=== PATIENT | male | born 1955 | race Caucasian/White ===

== ENCOUNTER → 2018-05-06 | Outpatient (CLI) | payer BC ==
--- NOTE | 2018-05-06 16:30 | US ---
EXAMINATION TYPE: US liver DATE OF EXAM: 05/06/2018 COMPARISON: NONE CLINICAL HISTORY: K76.0 Fatty (change of) liver. Hx of fatty liver. No surgeries. No pain. NPO. EXAM MEASUREMENTS: Liver Length: 15.7 cm Gallbladder Wall: 0.2 cm CBD: 0.4 cm CHD: 0.4 cm Right Kidney: 10.8 x 6.0 x 5.7 cm Pancreas: Tail obscured by overlying bowel gas. Echogenic. Main pancreatic duct - 0.22 cm . Normal less than 0.2 cm. Liver: Increased attenuation, decreased visualization of vessels suggestive of fatty infiltrate Gallbladder: wnl Evidence for sonographic Gaspar's sign: neg CBD: wnl CHD: wnl Right Kidney: wnl IMPRESSION: 1. Minimal prominence of the pancreatic duct. Consider ERCP for additional evaluation. 2. Moderate fatty infiltration liver. 3. Ultrasound abdomen otherwise unremarkable
== END ==
LOC: RADUSWWP 07:32
PROVIDERS: ATTEND Family Medicine
DX: K76.0 Fatty (change of) liver, not elsewhere classified (principal)
CPT/HCPCS: 76705

== ENCOUNTER → 2018-07-06 | Outpatient (CLI) | payer BC ==
--- NOTE | 2018-07-06 10:15 | US ---
EXAMINATION TYPE: US liver DATE OF EXAM: 07/06/2018 COMPARISON: 04/28/2018 CLINICAL HISTORY: K76.0 fatty liver. abn labs, no symptoms EXAM MEASUREMENTS: Liver Length: 16.3 cm Gallbladder Wall: 0.2 cm CBD: 0.5 cm Right Kidney: 11.7 x 4.6 x 5.4 cm Pancreas: wnl Liver: difficult to penetrate and heterogneneous Gallbladder: wnl Evidence for sonographic Gaspar's sign: no CBD: wnl Right Kidney: wnl IMPRESSION: 1. Diffuse hepatocellular disease versus fatty liver. Correlate clinically.
== END ==
LOC: RADUSWWP 07:33
PROVIDERS: ATTEND Family Medicine
DX: K76.0 Fatty (change of) liver, not elsewhere classified (principal)
CPT/HCPCS: 76705

== ENCOUNTER 2018-12-23 08:23 | Day surgery (SDC) | payer BC ==
[2018-12-21 08:14] VITALS: BMI 28.1
[~2018-12-23 08:23] MED LIST: LACTATED RINGERS 1,000 ML IV SCH; LIDOCAINE 1% 20 ML VIAL (10MG/ML) FOR IV START INTRADERMA PRN
[2018-12-23 08:39] VITALS: RESP 16; TEMP 97
[2018-12-23] MEDS ORDERED: PROPOFOL 10 MG/ML 20 ML VIAL IV ONE (09:47)
--- NOTE | 2018-12-23 09:50 | P.GSHP ---
History of Present Illness H&P Date: 12/23/18 Chief Complaint: Colon polyp 63-year-old male known to our service. Patient underwent colonoscopy last April. He was found to have a elevation of his ileocecal valve. At that location biopsy showed serrated adenoma. Doing well at this time. No bowel related complaints. Here today for reevaluation with polyp removal. Past Medical History Past Medical History: Hypertension History of Any Multi-Drug Resistant Organisms: None Reported Past Surgical History: Tonsillectomy Additional Past Surgical History / Comment(s): COLONOSCOPY Past Anesthesia/Blood Transfusion Reactions: No Reported Reaction Smoking Status: Former smoker - Past Family History Mother Family Medical History: Cancer Medications and Allergies Home Medications Medication Instructions Recorded Confirmed Type amLODIPine BESYLATE/BENAZEPRIL 1 each PO DAILY 12/21/18 12/23/18 History [amLODIPine BESYLATE/BENAZEPRIL 5-20 MG] Allergies Allergy/AdvReac Type Severity Reaction Status Date / Time No Known Allergies Allergy Verified 12/23/18 08:38 Surgical - Exam Vital Signs Temp Pulse Resp BP Pulse Ox 97 F L 68 16 117/64 93 L 12/23/18 08:38 12/23/18 08:38 12/23/18 08:38 12/23/18 08:38 12/23/18 08:38 Physical exam: General: Well-developed, well-nourished HEENT: Normocephalic, sclerae nonicteric Abdomen: Nontender, nondistended Extremities: No edema Neuro: Alert and oriented Assessment and Plan (1) Colon polyp Narrative/Plan: Will proceed with colonoscopy at this time Current Visit: Yes Status: Acute Code(s): K63.5 - POLYP OF COLON SNOMED Code(s): 04745727
--- NOTE | 2018-12-23 10:22 | P.PCN ---
Date of Procedure: 12/23/18 Procedure(s) Performed: PREOPERATIVE DIAGNOSIS: Colon polyp POSTOPERATIVE DIAGNOSIS: Diverticulosis, poor prep, no ileocecal valve polyp seen PROCEDURE: Colonoscopy ANESTHESIA: MAC SURGEON: Onel Christianson M.D. SPECIMENS: None ENDOSCOPIC PROCEDURE: The patient was placed on the endoscopy table in the left decubitus position. The Olympus colonoscope was inserted into the anus and passed under direct visualization to the base of the cecum. The appendiceal orifice was visualized. From that point the scope was slowly withdrawn inspecting all surfaces carefully. The patient's ileocecal valve had a somewhat strictured appearance. Luminal diameter there appeared less than 1 cm a portion of the ileum was protruding through the valve. There appeared to be slight scarring at the valve itself. There was no visible polypoid tissue however despite the previous biopsy. I was able to get a good view beneath the valve and at the base of the cecum with no visible polypoid tissue. The ascending colon transverse descending sigmoid and rectum appeared normal. The patient's prep was somewhat suboptimal. The patient had extensive diverticulosis. Digital rectal examination was normal. The patient was taken to the recovery room in stable condition per anesthesia guidelines. RECOMMENDATIONS: No visible polypoid tissue at the ileocecal valve at this time. Narrowing at the valve itself does not appear neoplastic. Recommend follow-up colonoscopy 2 years. Patient will follow up with me sooner if he develops any abdominal complaints.
[2018-12-23 10:26] VITALS: BP 107/72; PULSE 68
== END 2018-12-23 10:58 | disposition home or self-care (01) ==
LOC: ORWHC2ENDO 08:23
PROVIDERS: ATTEND Surgery
DX: K57.30 Diverticulosis of large intestine without perforation or abscess without bleeding (principal); Z86.010 Personal history of colon polyps; I10 Essential (primary) hypertension; Z79.899 Other long term (current) drug therapy; Z87.891 Personal history of nicotine dependence
CPT/HCPCS: 45378; J2704

== ENCOUNTER → 2019-02-03 | Day surgery (SDC) | payer BC ==
[~2019-02-03] MED LIST changes: +GLUCAGON 1 MG/ML VIAL IM STA; -LACTATED RINGERS 1,000 ML IV SCH; -LIDOCAINE 1% 20 ML VIAL (10MG/ML) FOR IV START INTRADERMA PRN
[2019-02-03 08:43] VITALS: BP 127/91; PULSE 75; RESP 20; TEMP 97.9
--- NOTE | 2019-02-05 12:59 | MR ---
EXAMINATION TYPE: MR Enterography DATE OF EXAM: 02/03/2019 COMPARISON: Hepatic ultrasound dated 06/28/2018 HISTORY: intestinal stricture CONTRAST: Standard multiplanar, multisequence imaging of the abdomen is performed without and with IV contrast, patient is injected with 1350 mL intravenous Gadavist gadolinium contrast. Oral Volumen and Water wa s given as per enterography protocol. FINDINGS: No intrahepatic biliary ductal dilatation is seen in the visualized portions of the liver. There is s usceptibility artifact generated from the left hip obscuring visualization of the pelvis. There is no abnormal enhancement in the visualized portions of the liver, spleen, pancreas, kidneys, nor adrenal glands. Abdominal aorta is of normal course and caliber. There is mild narrowing of the t erminal ileum and very mild enhancement seen on series 701 first pass postcontrast T1 fat sat image 2 36 in 239. The narrowing is seen on image 227 through 215. Caliber prior to this of the distal ileum measures 1.7 cm and the narrowing measures 0.7 cm. This measures a distance of the proximal there is no proximal dilatation of the distal ileum. No surrounding fluid collection is seen to suggest absces s. No bowel wall thickening is seen of the loops of bowel. Scattered colonic diverticula are present. Bowel wall thickening of the sigmoid colon may relate to chronic diverticulosis with no current infl ammatory fat stranding changes seen. Axial T2 nonfat sat series 301 image 22 there is terminal ileal wall thickening measuring up to 8 mm with no surrounding inflammatory change. No distinct submucosal deposition of fat is seen within the colon or small bowel to indicate chronic colitis. There is no te thering of loops of bowel nor vasa recta engorgement. No greater than 1 cm short axis lymph node is s een in the abdomen or pelvis. No stricture is identified the rectum is not included and therefore per irectal fistula or sinus tract cannot be evaluated. IMPRESSION: Low-grade short segment (approximately 2 cm) stricture of the terminal ileum with very mild enhanceme nt suggesting mild acute terminal ileitis however no surrounding inflammatory fat stranding is seen. No bowel dilatation or obstruction. 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
== END ==
LOC: RADMRIMAIN 08:18
PROVIDERS: ATTEND Surgery
DX: K56.699 Other intestinal obstruction unspecified as to partial versus complete obstruction (principal)
CPT/HCPCS: 96372; 72197; 74183; J1610; A9585

== ENCOUNTER 2021-12-27 11:07 | Emergency (ER) | payer BC ==
--- NOTE | 2021-12-27 12:01 | XR ---
EXAMINATION TYPE: XR shoulder complete RT DATE OF EXAM: 12/27/2021 CLINICAL HISTORY: Lifting injury with pain TECHNIQUE: Three views of the right shoulder are obtained. COMPARISON: None. FINDINGS: Metallic hardware from reverse right shoulder arthroplasty is present. There is anterior po sitioning of the proximal humeral component relative to the osseous glenoid component. No acute fract ure is seen. Moderate narrowing and spurring at the acromioclavicular joint is incidentally appreciat ed. [place]ik osseous structures are demineralized. The visualized ribs are intact . IMPRESSION: There is anterior prosthetic dislocation without fracture.
--- NOTE | 2021-12-27 12:45 | ED ---
General Adult HPI - General Chief complaint: Extremity Injury, Upper Stated complaint: Shoulder Pain Time Seen by Provider: 12/27/21 11:21 Source: patient Mode of arrival: ambulatory Limitations: no limitations - History of Present Illness Initial comments: Patient is a 66-year-old male presenting with chief complaint of right shoulder pain. Patient states that he was picking up a dog today when he felt sudden onset pain and noticed a large bulge at the front of his shoulder. Patient recently had a reverse right shoulder arthroplasty performed on 11/24/[address] Berrios in [place]. Patient states that he has dislocated his shoulder in the past and states that this feels similar. He has full sensation and range of motion of the hand and fingers. Denies any pain in the hand or discoloration. Denies any numbness, tingling, weakness. - Related Data Home Medications Medication Instructions Recorded Confirmed amLODIPine BESYLATE/BENAZEPRIL 1 each PO DAILY 12/21/18 02/03/19 [amLODIPine BESYLATE/BENAZEPRIL 5-20 MG] Allergies Allergy/AdvReac Type Severity Reaction Status Date / Time No Known Allergies Allergy Verified 12/27/21 11:19 Review of Systems ROS Statement: Those systems with pertinent positive or pertinent negative responses have been documented in the HPI. ROS Other: All systems not noted in ROS Statement are negative. Past Medical History Past Medical History: Hypertension History of Any Multi-Drug Resistant Organisms: None Reported Past Surgical History: Orthopedic Surgery, Tonsillectomy Additional Past Surgical History / Comment(s): right shoulder, left hip replacement Past Anesthesia/Blood Transfusion Reactions: No Reported Reaction Past Psychological History: No Psychological Hx Reported Smoking Status: Never smoker Past Alcohol Use History: Occasional Past Drug Use History: None Reported - Past Family History Mother Family Medical History: Cancer General Exam Limitations: no limitations General appearance: alert, in no apparent distress Head exam: Present: atraumatic, normocephalic, normal inspection Eye exam: Present: normal appearance, EOMI. Absent: scleral icterus Neck exam: Present: normal inspection Respiratory exam: Present: normal lung sounds bilaterally. Absent: respiratory distress, wheezes, rales, rhonchi, stridor Cardiovascular Exam: Present: regular rate, normal rhythm, normal heart sounds. Absent: systolic murmur, diastolic murmur, rubs, gallop, clicks Extremities exam: Absent: full ROM, tenderness Right Shoulder Exam: Present: deformity. Absent: full ROM Neuro motor exam: Present: wrist extension intact, thumb opposition intact, fingers 2-5 abduction intact Vascular: Present: radial pulse. Absent: vascular compromise Neurological exam: Present: alert, oriented X3, CN II-XII intact Psychiatric exam: Present: normal affect, normal mood Skin exam: Present: warm, dry, intact, normal color. Absent: rash Course Vital Signs 12/27/21 12/27/21 11:14 14:44 Temperature 97.8 F 97.3 F L Pulse Rate 64 80 Respiratory 16 18 Rate Blood Pressure 131/86 139/93 O2 Sat by Pulse 96 95 Oximetry Medical Decision Making - Medical Decision Making Patient is a 66-year-old male presenting with chief complaint of right shoulder pain. Patient had reverse total shoulder arthroplasty on 11/24/[address] Berrios in [place]. Patient states that he was picking up his dog today when he felt the shoulder pop out of place. He is describing a dull pain, no numbness or tingling or weakness. On examination radial pulses palpated, full sensation is intact, full wrist range of motion. Mild tenderness on palpation of the shoulder. There is an obvious deformity. X-ray confirms anterior dislocation. I spoke with the on-call orthopedist Dr. Villa, she stated that these dislocations are often difficult to reduce without the use of the OR, it would be of the patient's best interest to be seen by his original surgeon. I contacted Dr. Berrios's after-hours answering service, the PA with his office and spoke with me and stated that he could either be seen in the office on Wednesday or he could report to an ER which Dr. Berrios was able to surface such as [facility]. I discussed these options with Dr. Villa, she stated that we could offer to reduce the shoulder here and explained that this may not be successful in may require the use of the OR, which would require transfer to the hospital which Dr. Berrios all has privileges at, or we can transfer to [facility] where he could be seen and evaluated by Dr. Berrios's group. When provided options the patient opted to transfer to [facility]. I spoke with a provider in the ER, they accepted transfer. Patient was transferred by private vehicle. I discussed this case with my attending Dr. Paredes. Disposition Clinical Impression: Dislocation of shoulder region Disposition: OTHER INSTITUTION NOT DEFINED Condition: Stable Referrals: Nathan Marie MD [Primary Care Provider] - 1-2 days Time of Disposition: 14:21 - Out of Hospital Transfer - Req. Specs Out of Hospital Transfer - Requested Specifics: Other Emergency Center
[2021-12-27 14:46] VITALS: BP 139/93; PULSE 80; RESP 18; TEMP 97.3
== END 2021-12-27 14:52 | disposition other institution (70) ==
LOC: EC 11:07
DX: T84.028A Dislocation of other internal joint prosthesis, initial encounter (principal); I10 Essential (primary) hypertension; Z79.899 Other long term (current) drug therapy; Z96.611 Presence of right artificial shoulder joint; X58.XXXA Exposure to other specified factors, initial encounter
CPT/HCPCS: 99284

== ENCOUNTER 2022-07-28 07:15 | Day surgery (SDC) | payer BC ==
[2022-07-23 12:22] VITALS: BMI 28.8
[~2022-07-28 07:15] MED LIST changes: -GLUCAGON 1 MG/ML VIAL IM STA; +LACTATED RINGERS 1,000 ML IV SCH; +LIDOCAINE 1% (10MG/ML) FOR IV START INTRADERMA PRN; +ONDANSETRON 4 MG/2 ML VIAL IVP PRN
[2022-07-28 08:00] VITALS: RESP 16; TEMP 97.6
[2022-07-28] MEDS ORDERED: PROPOFOL 10 MG/ML 20 ML VIAL IV ONE (08:36)
--- NOTE | 2022-07-28 08:58 | P.PCN ---
Date of Procedure: 07/28/22 Procedure(s) Performed: BRIEF HISTORY: Patient is a 66-year-old pleasant white male male scheduled for an elective colonoscopy as a part of evaluation of chronic diarrhea for the last several years duration. He also has prior history of colon polyps. Last colonoscopy was 5 years ago. PROCEDURE PERFORMED: Colonoscopy with biopsy and snare polypectomy. PREOPERATIVE DIAGNOSIS: Chronic diarrhea. Historyofcolonpolyps. IV sedation per Anesthesia. PROCEDURE: After informed consent was obtained, the patient, was brought into the endoscopy unit. IV sedation was administered by Anesthesia under continuous monitoring. Digital rectal examination was normal. Initially the Olympus CF-160 flexible video colonoscope was then inserted in the rectum, gradually advanced into the cecum without any difficulty. Careful examination was performed as the scope was gradually being withdrawn. Ileocecal valve and the appendiceal orifice were visualized and appeared normal. Prep was fair.. Terminal ileum was intubated and 20 cm visualized and appeared normal. Mucosa of the cecum, ascending colon, appeared normal. The transverse colon there was a 3 mm polyp removed by cold biopsy. Rest of the transverse colon, descending colon, appeared normal. The sigmoid: There was a 1.5 cm pegylated polyp removed by snare polypectomy. Scattered diffuse diverticulosis noted throughout the entire colon. Mucosa of the sigmoid colon, and rectum appeared normal. Random biopsies were done from ascending and descending colon to rule out microscopic/collagenous colitis. Retroflexion was performed in the rectum and no lesions were seen. The patient tolerated the procedure well. IMPRESSION: 3 mm transverse colon polyp status post cold biopsy 1.5 cm pedunculated sigmoid: Polyp status post polypectomy Diffuse diverticulosis RECOMMENDATIONS: Findings of this examination were discussed with the patient as well as his family. He was advised to follow with the biopsy results. If the biopsy results adenoma he can have a repeat colonoscopy in 3 years..
[2022-07-28 09:31] VITALS: BP 103/62; PULSE 75
== END 2022-07-28 09:38 | disposition home or self-care (01) ==
LOC: ORWHC2ENDO 07:15
PROVIDERS: ATTEND Internal Medicine Gastroenterology
DX: D12.3 Benign neoplasm of transverse colon (principal); D12.5 Benign neoplasm of sigmoid colon; K57.30 Diverticulosis of large intestine without perforation or abscess without bleeding; I10 Essential (primary) hypertension; M10.9 Gout, unspecified; Z86.010 Personal history of colon polyps; Z87.891 Personal history of nicotine dependence; Z98.890 Other specified postprocedural states; Z79.899 Other long term (current) drug therapy; Z90.89 Acquired absence of other organs
CPT/HCPCS: 88305; 45380; 45385; J2704

== ENCOUNTER → 2023-11-25 | Outpatient (CLI) | payer MEDICARE ==
--- NOTE | 2023-11-25 19:23 | US ---
EXAMINATION TYPE: US arterial LE single level DATE OF EXAM: 11/25/2023 3:01 PM CLINICAL INDICATION: Male, 68 years old with history of I73.9 PERIPHERAL VASCULAR DISEASE, UNSPECIFIE D; claudication in thighs History of: Smoker: previous Hypertension: Yes Diabetic: No Hyperlipidemia: No TIA/CVA: No Previous Vascular Surgery: No CAD: No UT: No Vascular Ulcers: No Claudication: Bilateral Gangrene: No Doppler Waveforms: Right: Multiphasic Left: Multiphasic Right Brachial Pressure: 111 Left Brachial Pressure: 113 Ankle-Brachial Indices: Right: 1.15 Left: 1.19 (Vessel hardening > 1.4; Normal 0.9 - 1.4, Moderate 0.7 - 0.9, Severe 0.5-0.7) normal IMPRESSION: Based on triphasic waveforms in the pedal vessels and ABIs of 111 and 113 for the right a nd left respectively , there is no significant peripheral vascular disease.
== END | disposition home or self-care (01) ==
LOC: RADUSWWP 14:01
PROVIDERS: ATTEND Family Medicine
DX: I73.9 Peripheral vascular disease, unspecified (principal)
CPT/HCPCS: 93922

== ENCOUNTER 2023-12-29 00:14 | Emergency (ER) | payer MEDICARE ==
[2023-12-29 01:14] VITALS: BP 152/74; PULSE 41; RESP 16; TEMP 98.3
[2023-12-29] MEDS: BACITRACIN OINT 1 EACH PACKET TOPICAL ONE (01:38)
--- NOTE | 2023-12-29 01:58 | ED ---
General Adult HPI - General Chief complaint: Skin/Abscess/Foreign Body Stated complaint: lft thumb pain Time Seen by Provider: 12/29/23 00:35 Source: patient Mode of arrival: ambulatory Limitations: no limitations - History of Present Illness Initial comments: 68-year-old male presented to the ED with complaints of left thumb pain. Patient was fishing earlier today and got a fishhook stuck into his left thumb when he was trying to remove it from a walleye earlier. Tetanus status unknown. No other injuries at this time. No other complaints. - Related Data Home Medications Medication Instructions Recorded Confirmed amLODIPine BESYLATE/BENAZEPRIL 1 each PO DAILY 12/21/18 07/28/22 [amLODIPine BESYLATE/BENAZEPRIL 5-20 MG] Ascorbic Acid [Vitamin C] 500 mg PO DAILY 07/23/22 07/28/22 Cholecalciferol [Vitamin D3 (25 50 mcg PO DAILY 07/23/22 07/28/22 Mcg = 1000 Iu)] Cinnamon Bark [Cinnamon] 1,500 mg PO DAILY 07/23/22 07/28/22 allopurinoL [Zyloprim] 300 mg PO DAILY 07/23/22 07/28/22 Previous Rx's Medication Instructions Recorded Cephalexin [Keflex] 500 mg PO Q6HR 5 Days #20 cap 12/29/23 Allergies Allergy/AdvReac Type Severity Reaction Status Date / Time No Known Allergies Allergy Verified 12/29/23 00:26 Review of Systems ROS Statement: Those systems with pertinent positive or pertinent negative responses have been documented in the HPI. ROS Other: All systems not noted in ROS Statement are negative. Past Medical History Past Medical History: Hypertension Additional Past Medical History / Comment(s): GOUT History of Any Multi-Drug Resistant Organisms: None Reported Past Surgical History: Joint Replacement, Orthopedic Surgery, Tonsillectomy Additional Past Surgical History / Comment(s): right shoulder SX, left hip replacement. COLONOSCOPY Past Anesthesia/Blood Transfusion Reactions: No Reported Reaction Past Psychological History: No Psychological Hx Reported Smoking Status: Former smoker Past Alcohol Use History: Daily Past Drug Use History: None Reported - Past Family History Mother Family Medical History: Cancer General Exam Limitations: no limitations General appearance: alert, in no apparent distress Eye exam: Present: normal appearance Neck exam: Present: normal inspection Respiratory exam: Present: normal lung sounds bilaterally Cardiovascular Exam: Present: regular rate GI/Abdominal exam: Present: soft Extremities exam: Present: other ([place] of the lateral surface of the left thumb. Sensation of the left thumb intact. Good capillary refill. Able to flex oppose and extend the thumb.) Neurological exam: Present: alert, oriented X3 Skin exam: Present: warm, dry Course Vital Signs 12/29/23 00:26 Temperature 98.3 F Pulse Rate 41 L Respiratory 16 Rate Blood Pressure 152/74 O2 Sat by Pulse 95 Oximetry Procedures - Forgein Body Removal Soft Tissue Site: hand Anesthetic Used: lidocaine 1%, without epi Amount (mLs): 2 (digital block) Foreign Body Suspected: Fish Hook Foreign Body Removed: yes Foreign Body Removal Technique: Instrumentation Patient Tolerated Procedure: well, no complications Medical Decision Making - Medical Decision Making Was pt. sent in by a medical professional or institution ( PA, BIOMEDICAL EQUIPMENT SUPPORT SPECIALIST, urgent care, hospital, or care home...) When possible be specific @ -No Did you speak to anyone other than the patient for history (EMS, parent, family, police, friend...)? What history was obtained from this source @ -No Did you review nursing and triage notes (agree or disagree)? Why? @ -I reviewed and agree with nursing and triage notes Were old charts reviewed (outside hosp., previous admission, EMS record, old EKG, old radiological studies, urgent care reports/EKG's, care home records)? Report findings @ -No old charts were reviewed Differential Diagnosis (chest pain, altered mental status, abdominal pain women, abdominal pain men, vaginal bleeding, weakness, fever, dyspnea, syncope, headache, dizziness, GI bleed, back pain, seizure, CVA, palpatations, mental health, musculoskeletal)? @ -Differential Musculoskeletal Muscular strain, contusion, ligament sprain, fracture, arthritis, septic arthritis, bursitis, cellulitis, muscle spasm, nerve compression, DVT, arterial occlusion, herpes zoster, electrolyte abnormality, tumor.... This is not meant to be in all inclusive list EKG interpreted by me (3pts min.). @ -As above X-rays interpreted by me (1pt min.). @ -None done CT interpreted by me (1pt min.). @ -None done U/S interpreted by me (1pt. min.). @ -None done What testing was considered but not performed or refused? (CT, X-rays, U/S, labs)? Why? @ -None What meds were considered but not given or refused? Why? @ -None Did you discuss the management of the patient with other professionals (professionals i.e. , PA, BIOMEDICAL EQUIPMENT SUPPORT SPECIALIST, lab, RT, psych nurse, social worker aide, platen drier operator, teacher, court officer, assistant case manager)? Give summary @ -No Was smoking cessation discussed for >3mins.? @ -No Was critical care preformed (if so, how long)? @ -No Were there social determinants of health that impacted care today? How? (Homelessness, low income, unemployed, alcoholism, drug addiction, transportation, low edu. Level, literacy, decrease access to med. care, prison, rehab)? @ -No Was there de-escalation of care discussed even if they declined (Discuss DNR or withdrawal of care, Hospice)? DNR status @ -No What co-morbidities impacted this encounter? (DM, HTN, Smoking, COPD, CAD, Cancer, CVA, ARF, Chemo, Hep., AIDS, mental health diagnosis, sleep apnea, morbid obesity)? @ -None Was patient admitted / discharged? Hospital course, mention meds given and route, prescriptions, significant lab abnormalities, going to OR and other pertinent info. @ -Discharge 68-year-old male presenting to the ED with a fishhook in his left thumb occurring a few hours prior to arrival. Tetanus status unknown. This was updated for the patient. [place] was removed. For further details please see procedure note. Patient provided prescription for Keflex. Discharged home in stable condition. Discussed return precautions with patient who verbalized agreement. Undiagnosed new problem with uncertain prognosis? @ -No Drug Therapy requiring intensive monitoring for toxicity (Heparin, Nitro, I nsulin, Cardizem)? @ -No Were any procedures done? @ -Yes, foreign body removal Diagnosis/symptom? @ -[place], left thumb Acute, or Chronic, or Acute on Chronic? @ -Acute Uncomplicated (without systemic symptoms) or Complicated (systemic symptoms)? @ -Uncomplicated Side effects of treatment? @ -No Exacerbation, Progression, or Severe Exacerbation? @ -No Poses a threat to life or bodily function? How? (Chest pain, [place], ID, pneumonia, PE, COPD, DKA, ARF, appy, cholecystitis, CVA, Diverticulitis, Homicidal, Suicidal, threat to staff... and all critical care pts) @ -No Disposition Clinical Impression: Fish hook injury of left thumb Disposition: HOME SELF-CARE Condition: Good Additional Instructions: Please return to the Emergency Department if symptoms worsen or any other concerns. Please monitor for signs of infection including redness, warmth, swelling. Prescriptions: Cephalexin [Keflex] 500 mg PO Q6HR 5 Days #20 cap Is patient prescribed a controlled substance at d/c from ED?: No Referrals: None,Stated [Primary Care Provider] - 1-2 days Time of Disposition: 02:02
[2023-12-29] MEDS: DIPH,PERTUS(ACELL)TETVAC-LF 0.5 ML VIAL IM ONE (02:04)
[2023-12-29] MEDS: CEPHALEXIN 500MG STARTER PACK 4 CAP BTL PO STA (02:05)
== END 2023-12-29 02:10 | disposition home or self-care (01) ==
LOC: EC 00:14
DX: S61.042A Puncture wound with foreign body of left thumb without damage to nail, initial encounter (principal); Z87.891 Personal history of nicotine dependence; Z23 Encounter for immunization; W45.8XXA Other foreign body or object entering through skin, initial encounter
CPT/HCPCS: 10120; 90471; 90715; 99283

== ENCOUNTER 2024-02-24 10:08 | Emergency (ER) | payer MEDICARE ==
[2024-02-24] MEDS: SODIUM CHLORIDE 0.9% 1,000 ML IV STA (11:24)
[2024-02-24] MEDS: methylPREDNISolone SOD SUCCI 125 MG/2 ML VIAL IV STA (11:30)
--- NOTE | 2024-02-24 11:40 | ED ---
General Adult HPI - General Chief complaint: Skin/Abscess/Foreign Body Stated complaint: Hives,SOB Time Seen by Provider: 02/24/24 10:15 Source: patient, RN notes reviewed Mode of arrival: ambulatory Limitations: no limitations - History of Present Illness Initial comments: 68-year-old male presents to the emergency department for evaluation of rash. H natalie states that he has been dealing with this for the past 3 months. He notes that it is throughout his entire body, head to toe. He states that it has been red and itchy for the past 3 months but over the past 3 days he noticed some scaling to the rash which was not present prior. He does apply lotion to the rash. He has been utilizing antihistamine medications and Pepcid daily for this. He has been following with his primary care provider and has seen an associate relations specialist. - Related Data Home Medications Medication Instructions Recorded Confirmed amLODIPine BESYLATE/BENAZEPRIL 1 each PO DAILY 12/21/18 07/28/22 [amLODIPine BESYLATE/BENAZEPRIL 5-20 MG] Ascorbic Acid [Vitamin C] 500 mg PO DAILY 07/23/22 07/28/22 Cholecalciferol [Vitamin D3 (25 50 mcg PO DAILY 07/23/22 07/28/22 Mcg = 1000 Iu)] Cinnamon Bark [Cinnamon] 1,500 mg PO DAILY 07/23/22 07/28/22 allopurinoL [Zyloprim] 300 mg PO DAILY 07/23/22 07/28/22 Previous Rx's Medication Instructions Recorded Cephalexin [Keflex] 500 mg PO Q6HR 5 Days #20 cap 12/29/23 predniSONE 50 mg PO DAILY #5 tab 02/24/24 Allergies Allergy/AdvReac Type Severity Reaction Status Date / Time No Known Allergies Allergy Verified 02/24/24 10:12 Review of Systems ROS Statement: Those systems with pertinent positive or pertinent negative responses have been documented in the HPI. ROS Other: All systems not noted in ROS Statement are negative. Past Medical History Past Medical History: Hypertension Additional Past Medical History / Comment(s): GOUT History of Any Multi-Drug Resistant Organisms: None Reported Past Surgical History: Joint Replacement, Orthopedic Surgery, Tonsillectomy Additional Past Surgical History / Comment(s): right shoulder SX, left hip replacement. COLONOSCOPY Past Anesthesia/Blood Transfusion Reactions: No Reported Reaction Past Psychological History: No Psychological Hx Reported Smoking Status: Former smoker Past Alcohol Use History: Occasional Past Drug Use History: None Reported - Past Family History Mother Family Medical History: Cancer General Exam Limitations: no limitations General appearance: alert, in no apparent distress Head exam: Present: atraumatic, normocephalic, normal inspection Eye exam: Present: normal appearance, PERRL, EOMI. Absent: scleral icterus, conjunctival injection, periorbital swelling ENT exam: Present: normal exam, mucous membranes moist Neck exam: Present: normal inspection. Absent: tenderness, meningismus, lymphadenopathy Respiratory exam: Present: normal lung sounds bilaterally. Absent: respiratory distress, wheezes, rales, rhonchi, stridor Cardiovascular Exam: Present: regular rate, normal rhythm, normal heart sounds. Absent: systolic murmur, diastolic murmur, rubs, gallop, clicks Extremities exam: Present: normal inspection, full ROM, normal capillary refill. Absent: tenderness, pedal edema, joint swelling, calf tenderness Back exam: Present: normal inspection Neurological exam: Present: alert, oriented X3 Psychiatric exam: Present: normal affect, normal mood Skin exam: Present: warm, dry, erythema, other (Scaly erythematous rash throughout patient's entire body). Absent: normal color Course Vital Signs 02/24/24 02/24/24 02/24/24 10:09 10:36 14:01 Temperature 97.3 F L 97.6 F Pulse Rate 113 H 101 H 89 Respiratory 18 16 18 Rate Blood Pressure 132/73 144/89 O2 Sat by Pulse 93 L 96 95 Oximetry Medical Decision Making - Medical Decision Making Was pt. sent in by a medical professional or institution (LOS Singh, COMPUTER PROCESSING SCHEDULER, urgent care, hospital, or custodial...) When possible be specific @ -[No] Did you speak to anyone other than the patient for history (EMS, parent, family, police, friend...)? What history was obtained from this source @ -[No] Did you review nursing and triage notes (agree or disagree)? Why? @ -[I reviewed and agree with nursing and triage notes] Were old charts reviewed (outside hosp., previous admission, EMS record, old EKG, old radiological studies, urgent care reports/EKG's, custodial records)? Report findings @ -[No old charts were reviewed] Differential Diagnosis (chest pain, altered mental status, abdominal pain women, abdominal pain men, vaginal bleeding, weakness, fever, dyspnea, syncope, headache, dizziness, GI bleed, back pain, seizure, CVA, palpatations, mental health, musculoskeletal)? @ -[not applicable] EKG interpreted by me (3pts min.). @ -[EKG at 1105 showing sinus rhythm rate 93, CO 153, QRS 119, QTQTc 248068] X-rays interpreted by me (1pt min.). @ -[None done] CT interpreted by me (1pt min.). @ -[None done] U/S interpreted by me (1pt. min.). @ -[None done] What testing was considered but not performed or refused? (CT, X-rays, U/S, labs)? Why? @ -[None] What meds were considered but not given or refused? Why? @ -[None] Did you discuss the management of the patient with other professionals ( professionals i.e. , PA, COMPUTER PROCESSING SCHEDULER, lab, RT, psych nurse, social media manager, cloth colorer, teacher, student officer, mental health case manager)? Give summary @ -[No] Was smoking cessation discussed for >3mins.? @ -[No] Was critical care preformed (if so, how long)? @ -[No] Were there social determinants of health that impacted care today? How? (Homelessness, low income, unemployed, alcoholism, drug addiction, transportati on, low edu. Level, literacy, decrease access to med. care, alf, rehab)? @ -[No] Was there de-escalation of care discussed even if they declined (Discuss DNR or withdrawal of care, Hospice)? DNR status @ -[No] What co-morbidities impacted this encounter? (DM, HTN, Smoking, COPD, CAD, Cancer, CVA, ARF, Chemo, Hep., AIDS, mental health diagnosis, sleep apnea, morbid obesity)? @ -[None] Was patient admitted / discharged? Hospital course, mention meds given and route, prescriptions, significant lab abnormalities, going to OR and other pertinent info. @ -[hospital course] Undiagnosed new problem with uncertain prognosis? @ -[No] Drug Therapy requiring intensive monitoring for toxicity (Heparin, Nitro, Insulin, Cardizem)? @ -[No] Were any procedures done? @ -[No] Diagnosis/symptom? @ -[default] Acute, or Chronic, or Acute on Chronic? @ -[default] Uncomplicated (without systemic symptoms) or Complicated (systemic symptoms)? @ -[default] Side effects of treatment? @ -[No] Exacerbation, Progression, or Severe Exacerbation? @ -[No] Poses a threat to life or bodily function? How? (Chest pain, USA, NM, pneumonia, PE, COPD, DKA, ARF, appy, cholecystitis, CVA, Diverticulitis, Homicidal, Suicidal, threat to staff... and all critical care pts) @ -[No] - Lab Data Result diagrams: 02/24/24 11:26 02/24/24 12:34 Lab Results 02/24/24 02/24/24 02/24/24 Range/Units 11:26 11:26 12:34 WBC 13.5 H (3.8-10.6) k/uL RBC 4.68 (4.30-5.90) m/uL Hgb 15.5 (13.0-17.5) gm/dL Hct 48.0 (39.0-53.0) % MCV 102.6 H (80.0-100.0) fL MCH 33.1 (25.0-35.0) pg MCHC 32.2 (31.0-37.0) g/dL RDW 13.7 (11.5-15.5) % Plt Count 222 (150-450) k/uL MPV 8.1 Neutrophils % 33 % Lymphocytes % 14 % Monocytes % 5 % Eosinophils % 44 % Basophils % 1 % Neutrophils # 4.5 (1.3-7.7) k/uL Lymphocytes # 1.9 (1.0-4.8) k/uL Monocytes # 0.6 (0-1.0) k/uL Eosinophils # 5.9 H (0-0.7) k/uL Basophils # 0.1 (0-0.2) k/uL Manual Slide Review Performed Macrocytosis Slight ESR 27 H (0-20) mm/Hr PT 11.2 (10.0-12.5) sec INR 1.0 (<1.2) APTT 24.8 (22.0-30.0) sec Sodium 140 (137-145) mmol/L Potassium 3.8 (3.5-5.1) mmol/L Chloride 111 H (98-107) mmol/L Carbon Dioxide 23 (22-30) mmol/L Anion Gap 6 mmol/L BUN 13 (9-20) mg/dL Creatinine 0.64 L (0.66-1.25) mg/dL Est GFR (CKD-EPI)AfAm >90 (>60 ml/min/1.73 sqM) Est GFR (CKD-EPI)NonAf >90 (>60 ml/min/1.73 sqM) Glucose 110 H (74-99) mg/dL Calcium 8.3 L (8.4-10.2) mg/dL Total Bilirubin 0.9 (0.2-1.3) mg/dL AST 42 (17-59) U/L ALT 70 H (4-49) U/L Alkaline Phosphatase 157 H (38-126) U/L C-Reactive Protein 3.2 H (<1.0) mg/dL Total Protein 6.2 L (6.3-8.2) g/dL Albumin 3.4 L (3.5-5.0) g/dL Disposition Clinical Impression: Rash and nonspecific skin eruption Disposition: HOME SELF-CARE Condition: Stable Instructions (If sedation given, give patient instructions): Urticaria (ED), Acute Rash (ED) Additional Instructions: Continue utilizing your topical creams along with your anti-histamines. Follow up with dermatology and Dr. Marie. Prescriptions: predniSONE 50 mg PO DAILY #5 tab Is patient prescribed a controlled substance at d/c from ED?: No Referrals: Nathan Marie MD [Primary Care Provider] - 1-2 days
[2024-02-24 11:47] LABS: Basophils # (A) 0.1 k/uL (0-0.2); Basophils % (A) 1 %; Eosinophils # (A) 5.9 k/uL (0-0.7); HGB 15.5 gm/dL (13.0-17.5); Lymphocytes # (A) 1.9 k/uL (1.0-4.8); Lymphocytes % (A) 14 %; MCH 33.1 pg (25.0-35.0); MCHC 32.2 g/dL (31.0-37.0); MCV 102.6 fL (80.0-100.0); Macrocytosis Slight; Mean Platelet Volume 8.1; Monocytes # (A) 0.6 k/uL (0-1.0); Monocytes % (A) 5 %; Neutrophils # (A) 4.5 k/uL (1.3-7.7); Neutrophils % (A) 33 %; Platelet Count 222 k/uL (150-450); RBC 4.68 m/uL (4.30-5.90); RDW 13.7 % (11.5-15.5); WBC 13.5 k/uL (3.8-10.6)
[2024-02-24 12:16] LABS: Partial Thromboplastin Time 24.8 sec (22.0-30.0); Prothrombin Time 11.2 sec (10.0-12.5)
[2024-02-24 12:26] LABS: Eosinophils % (A) 44 %
--- NOTE | 2024-02-24 12:50 | XR ---
EXAMINATION TYPE: XR chest 2V DATE OF EXAM: 02/24/2024 COMPARISON: None HISTORY: 68-year-old male complaining of worsening hives/rash TECHNIQUE: PA and lateral views FINDINGS: Partially visualized reversed right shoulder to plasty. Heart normal size. Tortuous/ectatic thoracic aorta. Mild interstitial prominence without consolidation or pleural effusion. IMPRESSION: Interstitial prominence could reflect bronchitis or asthma. Tortuous/ectatic thoracic aorta.
[2024-02-24 13:08] LABS: ALT 70 U/L (4-49); AST 42 U/L (17-59); African American GFR (CKD) >90 (>60 ml/min/1.73 sqM); Albumin 3.4 g/dL (3.5-5.0); Alkaline Phosphatase 157 U/L (38-126); Anion Gap 6 mmol/L; Blood Urea Nitrogen 13 mg/dL (9-20); C Reactive Protein 3.2 mg/dL (<1.0); Calcium 8.3 mg/dL (8.4-10.2); Carbon Dioxide 23 mmol/L (22-30); Chloride 111 mmol/L (98-107); Glucose 110 mg/dL (74-99); Non-African American GFR(CKD) >90 (>60 ml/min/1.73 sqM); Potassium 3.8 mmol/L (3.5-5.1); Sodium 140 mmol/L (137-145); Total Bilirubin 0.9 mg/dL (0.2-1.3); Total Protein 6.2 g/dL (6.3-8.2)
[2024-02-24] MEDS ORDERED: RX INFO: IV CONTRAST WAS GIVEN 1 EACH MISC MISCELLANE PRN (13:39)
[2024-02-24 14:02] VITALS: BP 144/89; PULSE 89; RESP 18; TEMP 97.6
--- NOTE | 2024-02-24 14:12 | CT ---
EXAMINATION TYPE: CT chest w con DATE OF EXAM: 02/24/2024 COMPARISON: None HISTORY: All over rash, SOB. CT DLP: 422.7 mGycm Automated exposure control for dose reduction was used. CONTRAST: CT scan of the chest is performed with IV Contrast, patient injected with 100 mL of Isovue 300. FINDINGS: LUNGS: Mild emphysematous changes noted. The lungs are grossly clear, there is no concerning parenchy mal mass or nodule identified. There is no pleural effusion or pneumothorax seen. The tracheobronc hial tree is patent. MEDIASTINUM: There are no greater than 1 cm hilar or mediastinal lymph nodes. No pericardial effusi on is seen. Thoracic aorta is of normal caliber. The heart is not enlarged. UPPER ABDOMEN: No significant abnormality appreciated. OTHER: No additional significant abnormality is seen. IMPRESSION: No significant abnormality to account for the patient's symptoms.
[2024-02-24 15:11] LABS: Erythrocyte Sedimentation Rate 27 mm/Hr (0-20)
== END 2024-02-24 14:52 | disposition home or self-care (01) ==
LOC: EC 10:08
DX: R21 Rash and other nonspecific skin eruption (principal); Z87.891 Personal history of nicotine dependence
CPT/HCPCS: 36415; 93005; 80053; 85652; 85025; 85610; 85730; 86140; 71046; 71260; 99284; 96374; 96361 ×2; Q9967; J2919

== ENCOUNTER 2024-03-31 12:00 | Day surgery (SDC) | payer MEDICARE ==
[2024-03-31] MEDS ORDERED: LACTATED RINGERS 1,000 ML BAG ONE (12:33)
[2024-03-31] MEDS ORDERED: LIDOCAINE HCL/PF 20 MG/ML 10 ML AMP ONE (12:33)
[2024-03-31] MEDS ORDERED: PROPOFOL 10 MG/ML 20 ML VIAL IV ONE (12:33)
--- NOTE | 2024-05-10 13:40 | PCN ---
PROCEDURE NOTE REQUESTING PHYSICIAN: Dr. Marie. BRIEF HISTORY: The patient is a 68-year-old pleasant white male scheduled for an elective upper endoscopy as a part of evaluation of progressive dysphagia to solids for the last 1 year duration. Symptoms are progressively getting worse in the last 3 months and hence scheduled for an upper endoscopy to evaluate further. PROCEDURE PERFORMED: EGD with biopsy and dilation. PREOPERATIVE DIAGNOSIS: Progressive dysphagia to solids. ANESTHESIA: IV sedation per Anesthesia. DESCRIPTION OF PROCEDURE: After informed consent was obtained from the patient, he was brought in to the endoscopy unit. IV conscious sedation was administered by Anesthesia under continuous monitoring. Initially, the Olympus CF-180 video endoscope was inserted in the mouth and esophagus intubated without any difficulty and was gradually advanced into the stomach and duodenum and carefully examined. Bulb and the second part of the duodenum appeared normal. The scope was then withdrawn through the stomach, adequately insufflated with air and upon careful examination mucosa of antrum, body, cardia, and fundus appeared normal. The scope was then withdrawn to the esophagus. There was a distal esophageal stricture identified, which was dilated using 12 to 13.5 mm TTS balloon for 60 seconds and there was some oozing identified. The mucosa of the mid and distal esophagus showed thickened esophageal folds suspicious for eosinophilic esophagitis and multiple biopsies were done from the mid and distal esophagus. The proximal esophagus appeared normal and the patient tolerated the procedure well. IMPRESSION: 1. Distal esophageal stricture, status post balloon dilation using 12 and 13.5 mm TTS balloon as described above. 2. Thickened mid and distal esophageal folds with longitudinal ridges suspicious for eosinophilic esophagitis, status post multiple biopsies. RECOMMENDATIONS: Findings of this examination were discussed with the patient as well as his family. He was advised to follow up with the biopsy results. He will remain on clear liquids for 2 hours. Start on Prilosec 20 mg daily and discontinue the Pepcid, and follow up in office in 3-4 weeks. MMODL / IJN: [id number] /
== END 2024-03-31 13:36 ==
LOC: ORWHC2ENDO 12:00
PROVIDERS: ATTEND Internal Medicine Gastroenterology
DX: K22.2 Esophageal obstruction (principal); K22.89 Other specified disease of esophagus; I10 Essential (primary) hypertension; L30.9 Dermatitis, unspecified; Z87.891 Personal history of nicotine dependence; Z79.899 Other long term (current) drug therapy
CPT/HCPCS: 43239; 43249; 88305

== ENCOUNTER 2024-06-02 17:57 | Observation (INO) | payer MEDICARE ==
[2024-06-02] MEDS: SODIUM CHLORIDE 0.9% 500 ML 500 ML IV STA (18:32)
--- NOTE | 2024-06-02 18:34 | ED ---
General Adult HPI - General Chief complaint: Arrhythmia/Palpitations Stated complaint: Dizziness, hyperrtension, low pulse Time Seen by Provider: 06/02/24 18:05 Source: patient, RN notes reviewed, old records reviewed Mode of arrival: wheelchair Limitations: no limitations - History of Present Illness Initial comments: This is a 68-year-old male who presents emergency department stating that approximately an hour and a half prior to arrival he became very dizzy short of breath and when he took his blood pressure and pulse ox it took stated that his heart rate was 30. Patient stated that he did not feel like he was going to pass out he did however feel like he might fall over. Patient states anytime he stood up he got really dizzy patient states moving his head also made him dizzy. Patient denies nausea. Patient has chest pain or palpitation. Patient has difficulty breathing shortness of breath. Patient denies any fever or chills. - Related Data Home Medications Medication Instructions Recorded Confirmed amLODIPine BESYLATE/BENAZEPRIL 1 each PO DAILY 12/21/18 07/28/22 [amLODIPine BESYLATE/BENAZEPRIL 5-20 MG] Ascorbic Acid [Vitamin C] 500 mg PO DAILY 07/23/22 07/28/22 Cholecalciferol [Vitamin D3 (25 50 mcg PO DAILY 07/23/22 07/28/22 Mcg = 1000 Iu)] Cinnamon Bark [Cinnamon] 1,500 mg PO DAILY 07/23/22 07/28/22 allopurinoL [Zyloprim] 300 mg PO DAILY 07/23/22 07/28/22 Previous Rx's Medication Instructions Recorded Cephalexin [Keflex] 500 mg PO Q6HR 5 Days #20 cap 12/29/23 predniSONE 50 mg PO DAILY #5 tab 02/24/24 Allergies Allergy/AdvReac Type Severity Reaction Status Date / Time No Known Allergies Allergy Verified 02/24/24 10:12 Review of Systems ROS Statement: Those systems with pertinent positive or pertinent negative responses have been documented in the HPI. ROS Other: All systems not noted in ROS Statement are negative. Past Medical History Past Medical History: GERD/Reflux, Hyperlipidemia, Hypertension Additional Past Medical History / Comment(s): GOUT History of Any Multi-Drug Resistant Organisms: None Reported Past Surgical History: Joint Replacement, Orthopedic Surgery, Tonsillectomy Additional Past Surgical History / Comment(s): right shoulder SX, left hip replacement. COLONOSCOPY Past Anesthesia/Blood Transfusion Reactions: No Reported Reaction Past Psychological History: No Psychological Hx Reported Smoking Status: Former smoker Past Alcohol Use History: Occasional Past Drug Use History: None Reported - Past Family History Mother Family Medical History: Cancer General Exam - General Exam Comments Initial Comments: GENERAL: Patient is well-developed and well-nourished. Patient is nontoxic and well-hydrated and is in mild distress. ENT: Neck is soft and supple. No significant lymphadenopathy is noted. Oropharynx is clear. Moist mucous membranes. Neck has full range of motion without eliciting any pain. EYES: The sclera were anicteric and conjunctiva were pink and moist. Extraocular movements were intact and pupils were equal round and reactive to light. Eyelids were unremarkable. PULMONARY: Unlabored respirations. Good breath sounds bilaterally. No audible rales rhonchi or wheezing was noted. CARDIOVASCULAR: Patient heart rate was regular with extrasystole at about 80 bpm. ABDOMEN: Soft and nontender with normal bowel sounds. SKIN: Skin is clear with no lesions or rashes and otherwise unremarkable. NEUROLOGIC: Patient is alert and oriented x3. Cranial nerves II through XII are grossly intact. Motor and sensory are also intact. Normal speech, volume and content. Symmetrical smile. Finger-nose testing was normal bilaterally MUSCULOSKELETAL: Normal extremities with adequate strength and full range of motion. LYMPHATICS: No significant lymphadenopathy is noted PSYCHIATRIC: Normal psychiatric evaluation. Limitations: no limitations Course Vital Signs 06/02/24 06/02/24 18:05 18:42 Temperature 97.4 F L Pulse Rate 37 L 68 Respiratory 17 18 Rate Blood Pressure 134/83 134/83 O2 Sat by Pulse 95 96 Oximetry Medical Decision Making - Medical Decision Making EKG is interpreted by myself. EKG shows a sinus rhythm with frequent PVCs in a bigeminy manner at 71 bpm [place] interval is 144 QRS is 107 QT interval 369 QTc is 391. Was pt. sent in by a medical professional or institution (, PA, DECK LID FITTER, urgent care, hospital, or alf...) When possible be specific @ -No Did you speak to anyone other than the patient for history (EMS, parent, family, police, friend...)? What history was obtained from this source @ -No Did you review nursing and triage notes (agree or disagree)? Why? @ -I reviewed and agree with nursing and triage notes Were old charts reviewed (outside hosp., previous admission, EMS record, old EKG, old radiological studies, urgent care reports/EKG's, alf records)? Report findings @ -No old charts were reviewed Differential Diagnosis? @ -Differential Dizziness: Benign paroxysmal positional Vertigo, Meniere's disease, otitis media, acoustic neuroma, vertebrobasilar insufficiency, cerebellar stroke, encephalitis, hypovolemic, arrhythmia, coronary artery syndrome, anemia, this is not meant to be an all-inclusive list EKG interpreted by me (3pts min.). @ -As above X-rays interpreted by me (1pt min.). @ -Chest x-ray shows no acute abnormality CT interpreted by me (1pt min.). @ -CT of the brain shows a area of white matter changes in the right frontal region which is asymmetrical. U/S interpreted by me (1pt. min.). @ -None done What testing was considered but not performed or refused? (CT, X-rays, U/S, labs)? Why? @ -None What meds were considered but not given or refused? Why? @ -None Did you discuss the management of the patient with other professionals (emeka amaya i.e. , PA, DECK LID FITTER, lab, RT, psych nurse, director social, security dispatcher, teacher, vice squad police officer, correctional counselor/case manager)? Give summary @ -I spoke with sound physicians he agreed to admit the patient I admitted the patient I wrote admitting orders Was smoking cessation discussed for >3mins.? @ -No Was critical care preformed (if so, how long)? @ -No Were there social determinants of health that impacted care today? How? (Homelessness, low income, unemployed, alcoholism, drug addiction, transportation, low edu. Level, literacy, decrease access to med. care, nursing home, rehab)? @ -No Was there de-escalation of care discussed even if they declined (Discuss DNR or withdrawal of care, Hospice)? DNR status @ -No What co-morbidities impacted this encounter? (DM, HTN, Smoking, COPD, CAD, Cancer, CVA, ARF, Chemo, Hep., AIDS, mental health diagnosis, sleep apnea, morbid obesity)? @ -None Was patient admitted / discharged? Hospital course, mention meds given and route, prescriptions, significant lab abnormalities, going to OR and other pertinent info. @ -Patient received Antivert while in the emergency department. Patient states as long as he stays in bed he does not feel dizzy. Patient was in bigeminy for most of his stay in the emergency department. Patient's CAT scan showed white matter changes on the right. Patient will be admitted and have a neurology and cardiology consult Undiagnosed new problem with uncertain prognosis? @ -No Drug Therapy requiring intensive monitoring for toxicity (Heparin, Nitro, Insulin, Cardizem)? @ -No Were any procedures done? @ -No Diagnosis/symptom? @ -White matter changes Acute, or Chronic, or Acute on Chronic? @ -Acute Uncomplicated (without systemic symptoms) or Complicated (systemic symptoms)? @ -Complicated Side effects of treatment? @ -No Exacerbation, Progression, or Severe Exacerbation? @ -No Poses a threat to life or bodily function? How? (Chest pain, USA, PA, pneumonia, PE, COPD, DKA, ARF, appy, cholecystitis, CVA, Diverticulitis, Homicidal, Suicid al, threat to staff... and all critical care pts) @ -Yes this could lead to his further CVA and significant morbidity Diagnosis/symptom? @ -Bigeminy Acute, or Chronic, or Acute on Chronic? @ -Acute Uncomplicated (without systemic symptoms) or Complicated (systemic symptoms)? @ -Complicated Side effects of treatment? @ -None Exacerbation, Progression, or Severe Exacerbation] @ -No Poses a threat to life or bodily function? @ -Yes this could represent signs of an early PA. - Lab Data Result diagrams: 06/02/24 18:33 06/02/24 18:33 Lab Results 06/02/24 06/02/24 06/02/24 Range/Units 18:33 18:33 18:33 WBC 11.9 H (3.8-10.6) k/uL RBC 5.13 (4.30-5.90) m/uL Hgb 16.2 (13.0-17.5) gm/dL Hct 48.3 (39.0-53.0) % MCV 94.2 (80.0-100.0) fL MCH 31.7 (25.0-35.0) pg MCHC 33.7 (31.0-37.0) g/dL RDW 13.2 (11.5-15.5) % Plt Count 235 (150-450) k/uL MPV 7.6 Neutrophils % 69 % Lymphocytes % 17 % Monocytes % 8 % Eosinophils % 4 % Basophils % 0 % Neutrophils # 8.3 H (1.3-7.7) k/uL Lymphocytes # 2.0 (1.0-4.8) k/uL Monocytes # 0.9 (0-1.0) k/uL Eosinophils # 0.5 (0-0.7) k/uL Basophils # 0.1 (0-0.2) k/uL PT 10.5 (10.0-12.5) sec INR 0.9 (<1.2) APTT 21.7 L (22.0-30.0) sec Sodium 136 L (137-145) mmol/L Potassium 5.4 H (3.5-5.1) mmol/L Chloride 103 (98-107) mmol/L Carbon Dioxide 31 H (22-30) mmol/L Anion Gap 2 mmol/L BUN 26 H (9-20) mg/dL Creatinine 1.02 (0.66-1.25) mg/dL Est GFR (CKD-EPI)AfAm 88 (>60 ml/min/1.73 sqM) Est GFR (CKD-EPI)NonAf 77 (>60 ml/min/1.73 sqM) Glucose 108 H (74-99) mg/dL Calcium 9.0 (8.4-10.2) mg/dL Magnesium 1.9 (1.6-2.3) mg/dL Total Bilirubin 0.6 (0.2-1.3) mg/dL AST 48 (17-59) U/L ALT 51 H (4-49) U/L Alkaline Phosphatase 44 (38-126) U/L Troponin I (0.000-0.034) ng/mL Total Protein 6.7 (6.3-8.2) g/dL Albumin 4.0 (3.5-5.0) g/dL 06/02/24 Range/Units 18:33 WBC (3.8-10.6) k/uL RBC (4.30-5.90) m/uL Hgb (13.0-17.5) gm/dL Hct (39.0-53.0) % MCV (80.0-100.0) fL MCH (25.0-35.0) pg MCHC (31.0-37.0) g/dL RDW (11.5-15.5) % Plt Count (150-450) k/uL MPV Neutrophils % % Lymphocytes % % Monocytes % % Eosinophils % % Basophils % % Neutrophils # (1.3-7.7) k/uL Lymphocytes # (1.0-4.8) k/uL Monocytes # (0-1.0) k/uL Eosinophils # (0-0.7) k/uL Basophils # (0-0.2) k/uL PT (10.0-12.5) sec INR (<1.2) APTT (22.0-30.0) sec Sodium (137-145) mmol/L Potassium (3.5-5.1) mmol/L Chloride (98-107) mmol/L Carbon Dioxide (22-30) mmol/L Anion Gap mmol/L BUN (9-20) mg/dL Creatinine (0.66-1.25) mg/dL Est GFR (CKD-EPI)AfAm (>60 ml/min/1.73 sqM) Est GFR (CKD-EPI)NonAf (>60 ml/min/1.73 sqM) Glucose (74-99) mg/dL Calcium (8.4-10.2) mg/dL Magnesium (1.6-2.3) mg/dL Total Bilirubin (0.2-1.3) mg/dL AST (17-59) U/L ALT (4-49) U/L Alkaline Phosphatase (38-126) U/L Troponin I <0.012 (0.000-0.034) ng/mL Total Protein (6.3-8.2) g/dL Albumin (3.5-5.0) g/dL Disposition Clinical Impression: Bigeminy, White matter changes Disposition: ADMITTED IP TO THIS [facility] Referrals: Nathan Marie MD [Primary Care Provider] - 1-2 days Time of Disposition: 20:15
[2024-06-02 18:46] LABS: Basophils # (A) 0.1 k/uL (0-0.2); Basophils % (A) 0 %; Eosinophils # (A) 0.5 k/uL (0-0.7); Eosinophils % (A) 4 %; HCT 48.3 % (39.0-53.0); HGB 16.2 gm/dL (13.0-17.5); Lymphocytes % (A) 17 %; MCH 31.7 pg (25.0-35.0); MCHC 33.7 g/dL (31.0-37.0); MCV 94.2 fL (80.0-100.0); Mean Platelet Volume 7.6; Monocytes # (A) 0.9 k/uL (0-1.0); Monocytes % (A) 8 %; Neutrophils # (A) 8.3 k/uL (1.3-7.7); Neutrophils % (A) 69 %; Platelet Count 235 k/uL (150-450); RBC 5.13 m/uL (4.30-5.90); RDW 13.2 % (11.5-15.5); WBC 11.9 k/uL (3.8-10.6)
--- NOTE | 2024-06-02 18:48 | XR ---
EXAMINATION TYPE: XR chest 2V DATE OF EXAM: 06/02/2024 COMPARISON: 02/24/2024 HISTORY: 68-year-old male with chest pain TECHNIQUE: AP and lateral views FINDINGS: The heart is upper limits of normal in size. Mild interstitial prominence is unchanged. Some stringy atelectasis at the right base. No consolidation or pleural effusion. Partially visualized right shoul adrienne arthroplasty. There is narrowing of the subacromial space on the left. IMPRESSION: Similar borderline heart size and chronic changes. No definite acute process. Possible chronic full-t hickness rotator cuff tear left shoulder. [facility], , 06/02/2024 6:46 PM
[2024-06-02 18:54] LABS: INR 0.9 (<1.2); Prothrombin Time 10.5 sec (10.0-12.5)
[2024-06-02 18:58] LABS: ALT 51 U/L (4-49); AST 48 U/L (17-59); African American GFR (CKD) 88 (>60 ml/min/1.73 sqM); Alkaline Phosphatase 44 U/L (38-126); Anion Gap 2 mmol/L; Blood Urea Nitrogen 26 mg/dL (9-20); Carbon Dioxide 31 mmol/L (22-30); Chloride 103 mmol/L (98-107); Glucose 108 mg/dL (74-99); Magnesium 1.9 mg/dL (1.6-2.3); Non-African American GFR(CKD) 77 (>60 ml/min/1.73 sqM); Potassium 5.4 mmol/L (3.5-5.1); Sodium 136 mmol/L (137-145); Total Bilirubin 0.6 mg/dL (0.2-1.3); Total Protein 6.7 g/dL (6.3-8.2)
[2024-06-02 19:02] LABS: Partial Thromboplastin Time 21.7 sec (22.0-30.0)
--- NOTE | 2024-06-02 19:47 | CT ---
EXAMINATION TYPE: CT brain wo con CT DLP: 1186.8 mGycm, Automated exposure control for dose reduction was used. DATE OF EXAM: 06/02/2024 7:24 PM COMPARISON: None. CLINICAL INDICATION: Male, 68 years old with history of Dizziness, sudden onset dizziness and mild SO B TECHNIQUE: Brain: Axial CT images of the brain were obtained with coronal and sagittal reformats created and rev iewed. Contrast used: None. Oral contrast used: None. FINDINGS: Brain: Extra-axial spaces: No abnormal extra-axial fluid collections. Ventricular system: Dilatation in proportion to cerebral atrophy. Cerebral parenchyma: Asymmetric right frontal lobe white matter changes. Series 2031 image 636 Cerebr al atrophy. No acute intraparenchymal hemorrhage or mass effect. The llanos-white junction is well dif ferentiated. Cerebellum: Unremarkable. Mass effect: No evidence of midline shift. Intracranial vasculature: Atherosclerotic calcifications of the intracranial vessels. Soft tissues: Normal. Calvarium/osseous structures: No depressed skull fracture. Paranasal sinuses and mastoid air cells: Mild scattered paranasal sinus disease. Visualized orbits: Orbital contents are intact. IMPRESSION: Asymmetric right frontal lobe asymmetric white matter changes. Consider further evaluation with MRI. , Otherwise no acute process. [facility], , 06/02/2024 7:45 PM
[2024-06-02] MEDS: MECLIZINE 25 MG TAB PO STA (19:55)
[2024-06-02] MEDS ORDERED: ACETAMINOPHEN TAB 325 MG TAB PO PRN (22:32)
--- NOTE | 2024-06-02 22:42 | P.HPIM ---
History of Present Illness H&P Date: 06/02/24 History of present illness; Aravind Jackson 68-year-old male with history of CAD, hypertension, GERD presents with new onset dizziness. Patient states this morning while walking shortly after standing up he felt some dizziness. He states it was difficult to maintain his balance and and sat down. Patient states he had no fall or loss of consciousness. He also states that this time he became short of breath with palpitations. The symptoms lasted for about 2 to 3 hours. During this time he had no focal neurological deficits, memory loss or slurred speech. Denies leg bruising or swelling. No previous similar occurrences. Currently, patient states his symptoms have resolved. 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 No other complaints at this time. Patient currently reports absence of fever, chills, weight loss, chest pain, palpitations, diaphoresis, dyspnea, cough, nausea, vomiting, constipation, diarrhea, abdominal pain, weakness, myalgia, dizziness, headache, and dysuria. Initial lab work done in the ER showed WBC 11.9, hemoglobin 16.2, platelet 235, APTT 21.7, sodium 136, potassium 5.4, chloride 103, bicarb 31, anion gap 2, BUN 26, creatinine 1.02, glucose 108, troponin negative. EKG done in the ER independently interpreted showed heart rate of 71, no ST segment elevation or depression seen, no T-wave inversions seen. Frequent PVCs in bigeminy patten. Chest x-ray done independently interpreted in the ER showed no acute process similar to previous chest x-ray. CT head done asymmetrical right frontal lobe white matter changes, no acute process. Patient admitted to internal medicine service. REVIEW OF SYSTEMS: All Systems reviewed, pertinent positives and negatives noted in HPI. All other symptoms are negative. PHYSICAL EXAMINATION: Vitals reviewed GENERAL: No acute distress. Well developed, well nourished. HEENT: Pupils are round and equally reacting to light. EOMI. No scleral icterus. Normocephalic, atraumatic. No pharyngeal erythema. No thyromegaly. CARDIOVASCULAR: S1 and S2 present. No murmurs, rubs, or gallops. PULMONARY: Chest is clear to auscultation, no wheezing, rhonchi, or crackles. ABDOMEN: Soft, nontender, nondistended, normoactive bowel sounds. No palpable organomegaly. MUSCULOSKELETAL: No apparent joint swelling and deformities. EXTREMITIES: No apparent cyanosis, clubbing, or pedal edema. NEUROLOGICAL: The patient is alert and oriented x3, Gross neurological examination did not reveal any focal deficits. 5/5 Strength bilateral UE and LE SKIN: Dermatitis throughout body Labs reviewed Imaging reviewed Assessment and plan Aravind Jackson 68-year-old male with history of CAD, hypertension, GERD presents with new onset dizziness # Presyncope, in setting of bigeminy with palpitations and SOB - EKG with PVCs, bigeminy - Begin cardiac monitoring - Order orthostatic vitals - Order creatinine kinase, TSH - Order UA - Echocardiogram ordered Cardiology consulted - Fall precautions #Brain asymmetrical white matter changes No current focal deficits Neurology consulted #Pre-renal azotemia #Hyperkalemia, likely due to dehydration Initial K 5.4 Order creatinine kinase as above Monitor BMP - Hold home MARCIA-I #Leukocytosis, likely secondary to prednisone use (for dermatitis) No clear source, or fever 6-week history of prednisone use Order UA as above #Metabolic alkalosis Possibly secondary to steroid use Monitor BMP Chronic Medical Conditions # Essential hypertension - Resume home metoprolol #Hyperlidemia - Resume home Atorvastatin 40 mg #GERD - Resume home pantoprazole and famotidine #Dermatitis Resume home prednisone and Diprolene F: P.o. E: Replete as needed N: Low-sodium E: None DVT ppx: Subq Lovenox Code status: Full code Anticipated discharge place: Home Anticipated discharge time: 2 days Dictation was produced using [employer] dictation software. Please excuse any grammatical, word or spelling errors. Past Medical History Past Medical History: GERD/Reflux, Hyperlipidemia, Hypertension Additional Past Medical History / Comment(s): GOUT History of Any Multi-Drug Resistant Organisms: None Reported Past Surgical History: Joint Replacement, Orthopedic Surgery, Tonsillectomy Additional Past Surgical History / Comment(s): right shoulder SX, left hip replacement. COLONOSCOPY Past Anesthesia/Blood Transfusion Reactions: No Reported Reaction Past Psychological History: No Psychological Hx Reported Smoking Status: Former smoker Past Alcohol Use History: Occasional Past Drug Use History: None Reported - Past Family History Mother Family Medical History: Cancer Medications and Allergies Home Medications Medication Instructions Recorded Confirmed Type Cholecalciferol [Vitamin D3 (25 50 mcg PO DAILY 07/23/22 06/02/24 History Mcg = 1000 Iu)] Aspirin EC [Ecotrin Low Dose] 81 mg PO PC-SUPPER 06/02/24 06/02/24 History Benazepril HCl [Lotensin] 20 mg PO HS 06/02/24 06/02/24 History Betamethasone Dipropionate 1 applic TOPICAL BID 06/02/24 06/02/24 History [Betamethasone Dipropionate 0.05%] Calcium Carbonate [Calcium] 600 mg PO BID 06/02/24 06/02/24 History Dupilumab [Dupixent Pen] 300 mg SQ Q14D 06/02/24 06/02/24 History EPINEPHrine (Auto Inject) [Epipen] 0.3 mg IM ONCE PRN 06/02/24 06/02/24 History Famotidine 20 mg PO HS 06/02/24 06/02/24 History Metoprolol Succinate (ER) [Toprol 25 mg PO DAILY 06/02/24 06/02/24 History Xl] Pantoprazole [Protonix] 40 mg PO DAILY 06/02/24 06/02/24 History Ranolazine [Ranexa] 500 mg PO BID 06/02/24 06/02/24 History Rosuvastatin [Crestor] 20 mg PO HS 06/02/24 06/02/24 History predniSONE [Deltasone] 20 mg PO PC-SUPPER 06/02/24 06/02/24 History Allergies Allergy/AdvReac Type Severity Reaction Status Date / Time No Known Allergies Allergy Verified 06/02/24 21:12 Physical Exam Vitals: Vital Signs Temp Pulse Resp BP Pulse Ox 06/02/24 18:42 68 18 134/83 96 06/02/24 18:05 97.4 F L 37 L 17 134/83 95 Intake and Output 06/02/24 06/02/24 06/02/24 06:59 14:59 22:59 Other: Weight 83.915 kg Results CBC & Chem 7: 06/02/24 18:33 06/02/24 18:33 Labs: Abnormal Lab Results - Last 24 Hours (Table) 06/02/24 06/02/24 06/02/24 Range/Units 18:33 18:33 18:33 WBC 11.9 H (3.8-10.6) k/uL Neutrophils # 8.3 H (1.3-7.7) k/uL APTT 21.7 L (22.0-30.0) sec Sodium 136 L (137-145) mmol/L Potassium 5.4 H (3.5-5.1) mmol/L Carbon Dioxide 31 H (22-30) mmol/L BUN 26 H (9-20) mg/dL Glucose 108 H (74-99) mg/dL ALT 51 H (4-49) U/L
[2024-06-02] MEDS: predniSONE 20 MG TAB PO SCH (22:47)
[2024-06-02] MEDS: RANOLAZINE 500 MG TAB.ER.12H PO SCH (22:47)
[2024-06-02] MEDS: ATORVASTATIN 40 MG TAB PO SCH (22:48)
[2024-06-02] MEDS: FAMOTIDINE 20 MG TAB PO SCH (22:48)
[2024-06-02] MEDS: BETAMETHASONE DIPROPIONATE 0.05% OINTMENT 45 GM TUBE TOPICAL SCH (22:49)
[2024-06-02 23:28] LABS: Appearance,Urine Clear (Clear); Bilirubin,Urine Negative (Negative); Blood,Urine Negative (Negative); Color,Urine Colorless; Glucose,Urine (UA) Negative (Negative); Ketones,Urine Negative (Negative); Leukocyte Esterase,Urine Negative (Negative); Nitrite,Urine Negative (Negative); PH, Urine 5.5 (5.0-8.0); Protein,Urine Negative (Negative); Specific Gravity,Urine 1.006 (1.001-1.035); Urobilinogen,Urine <2.0 mg/dL (<2.0)
[2024-06-03 07:02] LABS: Basophils % (A) 0 %; Eosinophils # (A) 0.1 k/uL (0-0.7); Eosinophils % (A) 1 %; HCT 48.4 % (39.0-53.0); HGB 15.2 gm/dL (13.0-17.5); Lymphocytes % (A) 11 %; MCH 30.8 pg (25.0-35.0); MCHC 31.5 g/dL (31.0-37.0); MCV 97.8 fL (80.0-100.0); Mean Platelet Volume 7.2; Monocytes # (A) 0.6 k/uL (0-1.0); Monocytes % (A) 7 %; Neutrophils # (A) 6.6 k/uL (1.3-7.7); Neutrophils % (A) 78 %; Platelet Count 242 k/uL (150-450); RBC 4.95 m/uL (4.30-5.90); RDW 12.9 % (11.5-15.5); WBC 8.4 k/uL (3.8-10.6)
[2024-06-03 07:56] LABS: African American GFR (CKD) >90 (>60 ml/min/1.73 sqM); Anion Gap 6 mmol/L; Blood Urea Nitrogen 18 mg/dL (9-20); Calcium 8.7 mg/dL (8.4-10.2); Carbon Dioxide 29 mmol/L (22-30); Chloride 105 mmol/L (98-107); Creatine Kinase 57 U/L (55-170); Glucose 133 mg/dL (74-99); Magnesium 2.1 mg/dL (1.6-2.3); Non-African American GFR(CKD) >90 (>60 ml/min/1.73 sqM); Potassium 4.4 mmol/L (3.5-5.1); Sodium 140 mmol/L (137-145)
[2024-06-03] MEDS: ASPIRIN 81 MG PO SCH (08:50)
[2024-06-03] MEDS: METOPROLOL SUCCINATE (ER) 25 MG TAB.ER.24H PO SCH (08:50)
[2024-06-03] MEDS: ENOXAPARIN 40 MG/0.4 ML SYRINGE SQ SCH (08:50)
[2024-06-03] MEDS: PANTOPRAZOLE 40 MG TABLET PO SCH (08:50)
--- NOTE | 2024-06-03 09:11 | P.CRDCN ---
History of Present Illness History of present illness: 8-year-old male patient presenting with dizziness and imbalance and found to have ventricular bigeminy with PVCs from the left inferior wall A brief review of the 2D echo shows an inferior septal septal hypokinesis. 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 Previous stress test was normal. He is on Ranexa He also states his PVC burden is between 6 to 7% biomonitor Here we see ventricular bigeminy. Taking metoprolol succinate 25 mg p.o. daily. TSH normal electrolytes normal cardiac enzymes Plan Increase metoprolol succinate to 50 mg p.o. daily and observe on telemetry Evaluate for neurologic and ENT causes of dizziness Orthostatics 2D echo and Doppler study with Definity contrast Avoid antiarrhythmic drugs for suppression of PVCs If he truly has nonobstructive CAD with such wall motion abnormalities this may represent a nonischemic scar and a cardiac MRI may be appropriate along with the PVCs especially if from time to time he has frequent ventricular bigeminy. The PVC burden needs to be re-ascertained Sh is normal Past Medical History Past Medical History: GERD/Reflux, Hyperlipidemia, Hypertension Additional Past Medical History / Comment(s): GOUT History of Any Multi-Drug Resistant Organisms: None Reported Past Surgical History: Joint Replacement, Orthopedic Surgery, Tonsillectomy Additional Past Surgical History / Comment(s): right shoulder SX, left hip replacement. COLONOSCOPY Past Anesthesia/Blood Transfusion Reactions: No Reported Reaction Past Psychological History: No Psychological Hx Reported Smoking Status: Former smoker Past Alcohol Use History: Occasional Past Drug Use History: None Reported - Past Family History Mother Family Medical History: Cancer Medications and Allergies Home Medications Medication Instructions Recorded Confirmed Type Cholecalciferol [Vitamin D3 (25 50 mcg PO DAILY 07/23/22 06/02/24 History Mcg = 1000 Iu)] Aspirin EC [Ecotrin Low Dose] 81 mg PO PC-SUPPER 06/02/24 06/02/24 History Benazepril HCl [Lotensin] 20 mg PO HS 06/02/24 06/02/24 History Betamethasone Dipropionate 1 applic TOPICAL BID 06/02/24 06/02/24 History [Betamethasone Dipropionate 0.05%] Calcium Carbonate [Calcium] 600 mg PO BID 06/02/24 06/02/24 History Dupilumab [Dupixent Pen] 300 mg SQ Q14D 06/02/24 06/02/24 History EPINEPHrine (Auto Inject) [Epipen] 0.3 mg IM ONCE PRN 06/02/24 06/02/24 History Famotidine 20 mg PO HS 06/02/24 06/02/24 History Metoprolol Succinate (ER) [Toprol 25 mg PO DAILY 06/02/24 06/02/24 History Xl] Pantoprazole [Protonix] 40 mg PO DAILY 06/02/24 06/02/24 History Ranolazine [Ranexa] 500 mg PO BID 06/02/24 06/02/24 History Rosuvastatin [Crestor] 20 mg PO HS 06/02/24 06/02/24 History predniSONE [Deltasone] 20 mg PO PC-SUPPER 06/02/24 06/02/24 History Allergies Allergy/AdvReac Type Severity Reaction Status Date / Time No Known Allergies Allergy Verified 06/02/24 21:12 Physical Exam Vitals: Vital Signs Temp Pulse Resp BP Pulse Ox 06/03/24 06:13 76 18 121/80 98 06/02/24 22:44 87 18 127/86 95 06/02/24 18:42 68 18 134/83 96 06/02/24 18:05 97.4 F L 37 L 17 134/83 95 Intake and Output 06/02/24 06/03/24 06/03/24 22:59 06:59 14:59 Other: Weight 83.915 kg Results 06/03/24 06:51 06/03/24 06:51 Cardiac Enzymes 06/02/24 06/02/24 Range/Units 18:33 18:33 AST 48 (17-59) U/L Troponin I <0.012 (0.000-0.034) ng/mL Coagulation 06/02/24 Range/Units 18:33 PT 10.5 (10.0-12.5) sec APTT 21.7 L (22.0-30.0) sec CBC 06/02/24 06/03/24 Range/Units 18:33 06:51 WBC 11.9 H 8.4 (3.8-10.6) k/uL RBC 5.13 4.95 (4.30-5.90) m/uL Hgb 16.2 15.2 (13.0-17.5) gm/dL Hct 48.3 48.4 (39.0-53.0) % Plt Count 235 242 (150-450) k/uL Comprehensive Metabolic Panel 06/02/24 06/03/24 Range/Units 18:33 06:51 Sodium 136 L 140 (137-145) mmol/L Potassium 5.4 H 4.4 (3.5-5.1) mmol/L Chloride 103 105 (98-107) mmol/L Carbon Dioxide 31 H 29 (22-30) mmol/L BUN 26 H 18 (9-20) mg/dL Creatinine 1.02 0.86 (0.66-1.25) mg/dL Glucose 108 H 133 H (74-99) mg/dL Calcium 9.0 8.7 (8.4-10.2) mg/dL AST 48 (17-59) U/L ALT 51 H (4-49) U/L Alkaline Phosphatase 44 (38-126) U/L Total Protein 6.7 (6.3-8.2) g/dL Albumin 4.0 (3.5-5.0) g/dL Current Medications Generic Name Dose Route Start Last Admin Trade Name Freq PRN Reason Stop Dose Admin Acetaminophen 650 mg 06/02/24 22:32 Acetaminophen Tab 325 Mg Tab PO Q6HR PRN Mild Pain or Fever > 100.5 Aspirin 81 mg 06/03/24 09:00 06/03/24 08:50 Aspirin 81 Mg PO 81 mg DAILY IKER Administration Atorvastatin Calcium 40 mg 06/02/24 22:30 06/02/24 22:48 Atorvastatin 40 Mg Tab PO 40 mg HS IKER Administration Betamethasone Dipropionate 1 applic 06/02/24 22:00 06/03/24 08:54 Betamethasone Dipropionate 0.05% Ointment 45 Gm Tube TOPICAL 1 applic BID IKER Administration Protocol Enoxaparin Sodium 40 mg 06/03/24 09:00 06/03/24 08:50 Enoxaparin 40 Mg/0.4 Ml Syringe SQ 40 mg DAILY IKER Administration Famotidine 20 mg 06/02/24 22:00 06/02/24 22:48 Famotidine 20 Mg Tab PO 20 mg HS IKER Administration Metoprolol Succinate 50 mg 06/04/24 09:00 Metoprolol Succinate (Er) 25 Mg Tab.Er.24h PO DAILY [facility] Metoprolol Succinate 25 mg 06/03/24 09:05 Metoprolol Succinate (Er) 25 Mg Tab.Er.24h PO 06/03/24 09:06 ONCE STA Pantoprazole Sodium 40 mg 06/03/24 09:00 06/03/24 08:50 Pantoprazole 40 Mg Tablet PO 40 mg DAILY IKER Administration Prednisone 20 mg 06/02/24 22:00 06/02/24 22:48 Prednisone 20 Mg Tab PO Not Given PC-SUPPER IKER Ranolazine 500 mg 06/02/24 22:00 06/03/24 08:50 Ranolazine 500 Mg Tab.Er.12h PO 500 mg BID IKER Administration Intake and Output 06/02/24 06/03/24 06/03/24 22:59 06:59 14:59 Other: Weight 83.915 kg 06/03/24 06:51 06/03/24 06:51
[2024-06-03] MEDS: METOPROLOL SUCCINATE (ER) 25 MG TAB.ER.24H PO STA (09:12)
--- NOTE | 2024-06-03 12:49 | CA ---
Transthoracic Echo Report Name: Aravind Jackson Age: 68 Gender: M : 1955 Exam Date: 06/03/2024 08:46 Exam Location: [facility] Ht (in): 67 Wt (lb): 185 Ordering Physician: Magan Malin MD Attending/Referring Phys: [facility] Department Chair Janae Hernandez RDCS Procedure CPT: Indications: pre syncope Cardiac Hx: Technical Quality: Technically difficult study Contrast 1: Definity Total Dose (mL): 2 Contrast 2: Total Dose (mL): MEASUREMENTS (Male / Female) Normal Values 2D ECHO LV Diastolic Diameter PLAX 4.4 cm 4.2 - 5.9 / 3.9 - 5.3 cm LV Systolic Diameter PLAX 4.0 cm IVS Diastolic Thickness 1.0 cm 0.6 - 1.0 / 0.6 - 0.9 cm LVPW Diastolic Thickness 1.1 cm 0.6 - 1.0 / 0.6 - 0.9 cm LV Relative Wall Thickness 0.5 RV Internal Dim ED PLAX 3.9 cm LA Volume 66.1 cm??? 18 - 58 / 22 - 52 cm??? LA Volume Index 32.9 cm???/m??? 16 - 28 cm???/m??? M-MODE Aortic Root Diameter MM 3.6 cm LA Systolic Diameter MM 4.0 cm LA Ao Ratio MM 1.1 AV Cusp Separation MM 1.8 cm DOPPLER AV Peak Velocity 145.0 cm/s AV Peak Gradient 8.4 mmHg AV Mean Velocity 105.4 cm/s AV Mean Gradient 4.9 mmHg AV Velocity Time Integral 31.3 cm LVOT Peak Velocity 80.1 cm/s LVOT Peak Gradient 2.6 mmHg LVOT Velocity Time Integral 18.0 cm MV Area PHT 3.6 cm??? Mitral E Point Velocity 46.2 cm/s Mitral A Point Velocity 62.8 cm/s Mitral E to A Ratio 0.7 MV Deceleration Time 213.6 ms MV E' Velocity 6.9 cm/s Mitral E to MV E' Ratio 6.7 TR Peak Velocity 249.3 cm/s TR Peak Gradient 24.9 mmHg Right Ventricular Systolic Press 29.7 mmHg FINDINGS Left Ventricle Left ventricular cavity size normal. Left ventricular wall thickness normal. Abnormal septal motion. Hypokinetic inferior wall. Left ventricular ejection fraction is estimated at 45%. Right Ventricle Moderate right ventricular dilatation. Right ventricular systolic pressure within normal limits. Right Atrium Mild right atrial dilatation. Left Atrium Mildly increased left atrial volume. Mildly increased left atrial area. Mitral Valve Structurally normal mitral valve. Mitral valve thickened. Mild mitral annular calcification. [id number] mitral regurgitation. Centrally directed mitral regurgitation jet. Aortic Valve Trileaflet aortic valve. No aortic valve stenosis or regurgitation. Aortic valve sclerosis. Tricuspid Valve Structurally normal tricuspid valve. Mild tricuspid regurgitation. Pulmonic Valve Structurally normal pulmonic valve. Trace to mild pulmonic regurgitation. Pericardium No pericardial effusion. Aorta Normal size aortic root and proximal ascending aorta. CONCLUSIONS Indication: Frequent PVCs dizzy spells presyncope Impression Left ventricular ejection fraction mildly reduced ejection fraction of 45%. PVCs noted during procedure Mild septal and inferior wall hypokinesis The PVCs are originating from the left ventricular inferior wall Previewed by: Dr. Marques Phelan MD (Electronically Signed) Final Date: 03 June 2024 12:49
[2024-06-03 13:20] LABS: Chol/HDL Ratio 2.85 Ratio; LDL Cholesterol,Calculated 65.6 mg/dL (0.0-131.0)
[2024-06-03] MEDS: CALCIUM CARBONATE 500 MG CHEWABLE PO SCH (13:38)
--- NOTE | 2024-06-03 14:02 | P.PN ---
Subjective Progress Note Date: 06/03/24 Subjective: Patient seen and examined at bedside. Patient not complaining of any active symptoms of dizziness. Denies any shortness of breath, chest pain, numbness or weakness in upper or lower extremities. All Systems reviewed and pertinent positives and negatives noted in HPI, all other symptoms are negative Objective: Vital signs reviewed. General: non toxic, no distress, appears at stated age, normal weight Derm: no unusual rashes/lesions, warm Head: atraumatic, normocephalic, symmetric Eyes: EOMI, no lid lag, anicteric sclera, pupils equal round reactive to light ENT: Nose and ears atraumatic Neck: No cervical lymphadenopathy, trachea midline, supple Mouth: no lip lesion, mucus membranes moist Cardiovascular: S1S2 reg, no murmur, positive dorsalis pedis pulse bilateral, no edema Lungs: CTA bilateral, no rhonchi, no rales, no accessory muscle use Abdominal: soft, nontender to palpation, no guarding Ext: muscle strength 5 out of 5 in all 4 extremities grossly, no gross muscle at rophy, no contractures, Neuro: CN II-XI grossly intact, no gross focal neuro deficits Psych: Alert, oriented, appropriate affect Data reviewed today: Labs: WBC 8.4, hemoglobin 15.2, MCV 97.8, sodium 140, potassium 4.4, chloride 105, bicarbonate 29, BUN 18, creatinine 0.86, glucose 133, calcium 8.7, magnesium 2.1, creatinine kinase 57, TSH 1.21 Images: No new imaging Assessment and Plan: Aravind Jackson 68-year-old male with history of CAD, hypertension, GERD presents with new onset dizziness. # Presyncope, in setting of bigeminy with palpitations and SOB EKG with PVCs, bigeminy Continue with cardiac monitoring Order orthostatic vitals Creatinine kinase 57, TSH 1.21 UA is benign Echocardiogram shows LVEF of 45% with mild septal and inferior wall hypokinesis. PVCs originating from left ventricle inferior wall. Cardiology consulted, note reviewed, recommendations as follows Metoprolol succinate increased to 50 mg p.o. daily 2D echo and Doppler study with Definity contrast Fall precautions Order vitamin B12 and serum folate #Brain asymmetrical white matter changes No current focal deficits Neurology consulted, consider brain MRI #Pre-renal azotemia, resolved #Hyperkalemia, likely due to dehydration, resolved Initial K 5.4 --> 4.4 Monitor BMP - Hold home MARCIA-I #Leukocytosis, likely secondary to prednisone use (for dermatitis) No clear source, or fever 6-week history of prednisone use UA benign #Metabolic alkalosis, resolved Chronic Medical Conditions # Essential hypertension - metoprolol dosage increased to 50 mg p.o. daily as above #Hyperlidemia - Resume home Atorvastatin 40 mg #GERD - Resume home pantoprazole and famotidine #Dermatitis Resume home prednisone and topical steroids F: P.o. E: Replete as needed N: Heart healthy diet E: None DVT ppx: Subq Lovenox Code status: Full code Anticipated discharge place: Home Anticipated discharge time: Pending clinical course I have seen and evaluated the patient today. Discussed with the resident and agree with the residents finding and plan as documented in the resident's note. Changes highlighted in blue font. Objective - Vital Signs Vital signs: Vital Signs Temp 97.4 F L 06/02/24 18:05 Pulse 75 06/03/24 11:00 Resp 18 06/03/24 11:00 BP 131/88 06/03/24 11:00 Pulse Ox 97 06/03/24 11:00 FiO2 Intake & Output 06/02/24 06/03/24 06/03/24 18:59 06:59 18:59 Weight 83.915 kg - Labs CBC & Chem 7: 06/03/24 06:51 06/03/24 06:51 Labs: Abnormal Lab Results - Last 24 Hours (Table) 06/02/24 06/02/24 06/02/24 Range/Units 18:33 18:33 18:33 WBC 11.9 H (3.8-10.6) k/uL Neutrophils # 8.3 H (1.3-7.7) k/uL APTT 21.7 L (22.0-30.0) sec Sodium 136 L (137-145) mmol/L Potassium 5.4 H (3.5-5.1) mmol/L Carbon Dioxide 31 H (22-30) mmol/L BUN 26 H (9-20) mg/dL Glucose 108 H (74-99) mg/dL ALT 51 H (4-49) U/L Ur Random Potassium (25.0-125.0) mmol/L 06/02/24 06/03/24 Range/Units 23:21 06:51 WBC (3.8-10.6) k/uL Neutrophils # (1.3-7.7) k/uL APTT (22.0-30.0) sec Sodium (137-145) mmol/L Potassium (3.5-5.1) mmol/L Carbon Dioxide (22-30) mmol/L BUN (9-20) mg/dL Glucose 133 H (74-99) mg/dL ALT (4-49) U/L Ur Random Potassium 7.7 L (25.0-125.0) mmol/L
--- NOTE | 2024-06-03 17:54 | US ---
EXAMINATION TYPE: US carotid duplex BILAT DATE OF EXAM: 06/03/2024 COMPARISON: NONE CLINICAL INDICATION: Male, 68 years old with history of dizziness; Dizzy. HTN- on meds. TECHNIQUE: Grayscale, color Doppler and spectral Doppler evaluation of the bilateral carotid systems and vertebral arteries. Indirect Doppler criteria was utilized. FINDINGS: EXAM MEASUREMENTS: RIGHT: Peak Systolic Velocity (PSV) cm/sec ----- Right CCA: 76.8 ----- Right ICA: 39.3 ----- Right ECA: 108.6 ICA/CCA ratio: 0.5 RIGHT: End Diastole cm/sec ----- Right CCA: 3.2 ----- Right ICA: 8.7 ----- Right ECA: 6.3 LEFT: Peak Systolic Velocity (PSV) cm/sec ----- Left CCA: 80.9 ----- Left ICA: 67.3 ----- Left ECA: 76.5 ICA/CCA ratio: 0.8 LEFT: End Diastole cm/sec ----- Left CCA: 7.3 ----- Left ICA: 12.3 ----- Left ECA: 5.1 VERTEBRALS (direction of flow): Right Vertebral: Antegrade Left Vertebral: Antegrade Rhythm: Arrhythmia LEAD DATABASE ADMINISTRATOR NOTES: No elevated velocities. Small amount of plaque right posterior bulb. IMPRESSION: No hemodynamically significant internal carotid artery stenosis on either side. Criteria for Assigning % of Stenosis / Diameter reduction (Estimation based on the indirect measurements of the internal carotid artery velocities (ICA PSV). 1. Normal (no stenosis)=ICA PSV < 125 cm/s: ratio < 2.0: ICA EDV<40 cm/s. 2. Less than 50% stenosis=ICA PSV < 125 cm/s: ratio < 2.0: ICA EDV<40 cm/s. 3. 50 to 69% stenosis=ICA PSV of 125 to 230 cm/s: ration 2.0 ? 4.0: ICA EDV 40-100 cm/s. 4. Greater than 70% stenosis to near occlusion= ICA PSV > 230 cm/s: ratio > 4.0: ICA EDV > 100 cm/s. 5. Near occlusion= ICA PSV velocities may be low or undetectable: variable ratio and ICA EDV. 6. Total occlusion=unable to detect flow. [facility], , 06/03/2024 5:51 PM
[2024-06-03] MEDS ORDERED: NON FORMULARY DRUG (Rosuvastatin 20 MG Tablet) PO SCH (21:00)
[2024-06-03] MEDS: lisinopriL 20 MG TAB PO SCH (21:39)
--- NOTE | 2024-06-03 23:49 | P.CNNES ---
History of Present Illness Consult date: 06/03/24 Requesting physician: Jovanni Brand Reason for Consult: White matter change History of Present Illness: This is a telemedicine neurology consultation performed today on 06/03/2024, in coordination with Criss Zazueta. Patient is a 68-year-old right-handed male came to the hospital yesterday at 5:57 PM for dizziness. Patient's was also present by the bedside. They mentioned that patient woke up fine in the morning. At around 5 PM, he was walking from living room into the kitchen when he suddenly noticed dizziness, lightheadedness, and felt balance was off, and he was veering to the left side. He sat in the kitchen table and felt short of breath, dizzy (some spinning) therefore he came to the hospital. He checked his blood pressure and was high 152/93. The symptoms lasted for about 2-3 hours. There is no report of slurred speech, facial droop, any visual disturbance, focal numbness, tingling or weakness. At present his symptoms are pretty much gone. Patient denies any previous history of dizziness or vertigo. Although later he mentioned that he does get occasional dizziness lasting for about couple minutes, once a year. Patient denies any history of upper respiratory infection, any ear problem. No trauma, pain in the ear or hearing loss. Patient at baseline walks normally doesn't use any assistive device. No history of memory loss or dementia. Vital signs arrival blood pressure 134/83, pulse rate 37, temperature 97.4. Subsequent pulse rate are normal around 68. Blood test shows normal CBC, PT/PTT, normal renal functions, AST is normal, ALT 51. BUN 26, creatinine 1.02. Repeat basic metabolic panel is normal. Troponin negative. TSH is normal. UA is negative. EKG shows sinus rhythm with frequent ventricular premature complexes. CT head shows asymmetric right frontal lobe white matter changes. Consider further evaluation with MRI. Otherwise no acute process. On my review, there is evidence of significant cortical atrophy with subsequent subdural hygromas. Visualized paranasal sinuses and external auditory canals are clear. Chest x-ray shows similar borderline heart size and chronic changes. No definite acute process. Possible chronic full-thickness rotator cuff tear left shoulder. Home medications include Crestor 20 mg, aspirin 81 mg, calcium, vitamin D, Lotensin, Protonix, prednisone 20 mg daily Pepcid, Ranexa, metoprolol and Dupilumab. Patient has smoked 3 packs per day for 20 years, quit in 2008. Drinks alcohol occasionally. Never heavy smoker. No use of marijuana. Review of Systems All pertinent positive and negatives mentioned in the HPI, otherwise unremarkable. Past Medical History Past Medical History: GERD/Reflux, Hyperlipidemia, Hypertension Additional Past Medical History / Comment(s): GOUT History of Any Multi-Drug Resistant Organisms: None Reported Past Surgical History: Joint Replacement, Orthopedic Surgery, Tonsillectomy Additional Past Surgical History / Comment(s): right shoulder SX, left hip replacement. COLONOSCOPY Past Anesthesia/Blood Transfusion Reactions: No Reported Reaction Past Psychological History: No Psychological Hx Reported Smoking Status: Former smoker Past Alcohol Use History: Occasional Past Drug Use History: None Reported - Past Family History Mother Family Medical History: Cancer Father Additional Family Medical History / Comment(s): from a cerebral hemorrhage. Medications and Allergies Home Medications Medication Instructions Recorded Confirmed Type Cholecalciferol [Vitamin D3 (25 50 mcg PO DAILY 07/23/22 06/02/24 History Mcg = 1000 Iu)] Aspirin EC [Ecotrin Low Dose] 81 mg PO PC-SUPPER 06/02/24 06/02/24 History Benazepril HCl [Lotensin] 20 mg PO HS 06/02/24 06/02/24 History Betamethasone Dipropionate 1 applic TOPICAL BID 06/02/24 06/02/24 History [Betamethasone Dipropionate 0.05%] Calcium Carbonate [Calcium] 600 mg PO BID 06/02/24 06/02/24 History Dupilumab [Dupixent Pen] 300 mg SQ Q14D 06/02/24 06/02/24 History EPINEPHrine (Auto Inject) [Epipen] 0.3 mg IM ONCE PRN 06/02/24 06/02/24 History Famotidine 20 mg PO HS 06/02/24 06/02/24 History Metoprolol Succinate (ER) [Toprol 25 mg PO DAILY 06/02/24 06/02/24 History Xl] Pantoprazole [Protonix] 40 mg PO DAILY 06/02/24 06/02/24 History Ranolazine [Ranexa] 500 mg PO BID 06/02/24 06/02/24 History Rosuvastatin [Crestor] 20 mg PO HS 06/02/24 06/02/24 History predniSONE [Deltasone] 20 mg PO PC-SUPPER 06/02/24 06/02/24 History Allergies Allergy/AdvReac Type Severity Reaction Status Date / Time No Known Allergies Allergy Verified 06/02/24 21:12 Physical Examination - Vital Signs Vital Signs: Vital Signs Temp Pulse Resp BP Pulse Ox 06/03/24 11:00 75 18 131/88 97 06/03/24 06:13 76 18 121/80 98 06/02/24 22:44 87 18 127/86 95 06/02/24 18:42 68 18 134/83 96 06/02/24 18:05 97.4 F L 37 L 17 134/83 95 Intake and Output 06/02/24 06/03/24 06/03/24 22:59 06:59 14:59 Other: Weight 83.915 kg Patient is an elderly male, in no acute distress. Patient is alert awake oriented to time place and person. Patient knows it is May 2024 and that he is in [facility] in [facility] and name of the current president Mr. Solorio. Speech and language functions are normal. Patient can name and repeat very well. No aphasia or dysarthria. Attention, concentration and fund of knowledge is adequate. On cranial nerve examination, pupils are equal, round and reacting to light from 4 to 3 mm. His visual baptiste are full on confrontation, with no neglect on double simultaneous stimulation. Extraocular muscles are intact with no nystagmus. Face is symmetric, tongue protrudes to the midline. Palatal elevation and sensation normal, hearing and shoulder shrug normal, facial sensation normal. On muscle strength testing, there is no pronator drift and the strength is normal in arms and legs distally and proximally. Deep tendon reflexes are (right/left) biceps trace/1+, knees 1+/1+ and plantars downgoing bilaterally. Sensory to touch is equal with no neglect on double simultaneous stimulation. Cerebellar function showed no ataxia for [id number] testing. No dysdiadochokinesia. No ataxia for [id number] testing on either side. Tone and bulk of muscles normal. Gait deferred.. On general examination, there is no carotid bruit or murmur, S1-S2 audible. Chest is clear on consultation. Abdomen is soft nontender. No organomegaly, bowel sounds present. Peripheral pulses are present. No peripheral edema. Results - Laboratory Findings CBC and BMP: 06/03/24 06:51 06/03/24 06:51 Abnormal Lab Findings: Abnormal Labs 06/02/24 06/02/24 06/02/24 18:33 18:33 18:33 WBC 11.9 H Neutrophils # 8.3 H APTT 21.7 L Sodium 136 L Potassium 5.4 H Carbon Dioxide 31 H BUN 26 H Glucose 108 H ALT 51 H Ur Random Potassium 06/02/24 06/03/24 23:21 06:51 WBC Neutrophils # APTT Sodium Potassium Carbon Dioxide BUN Glucose 133 H ALT Ur Random Potassium 7.7 L Assessment and Plan Assessment: * Transient episode of dizziness, lightheadedness, imbalance and veering to the left side. Symptoms lasted for about couple hours. There were no associated focal symptoms like slurred speech, facial droop, or any other focal symptoms. Uncertain if above episode related to cardiac dysrhythmia, or from peripheral vestibular dysfunction. Patient had abnormal 2-D echo, and also revealed evidence of PVCs originating from the left inferior wall (per echo report). Doubt TIA, although in the differential. * Hypertension * Hyperlipidemia * Eczema * X tobacco use Plan: * Patient's symptoms have resolved. Exact cause of dizziness/vertigo, unclear. * CT head revealed some brain atrophy, somewhat out of proportion for the patient's chronological age. There is some hypodensity noted in the right centrum semiovale, which appears chronic in nature. No acute process. * No indication for MRI, as his symptoms have resolved and the current examination is nonfocal. Patient will undergo workup for TIA. * 2-D echo revealed LV EF 45%. Hypokinetic inferior wall. Abnormal septal motion. Mild right atrial dilation. Mildly increased left atrial volume. Mild to moderate MR. PVCs noted during procedure. * Carotid Doppler, rule out stenosis * Fasting a.m. lipid panel * Hemoglobin A1c * B12, folate. * Orthostatics were checked, and are negative: Supine blood pressure 126/78, sitting 144/75 and standing 135/73. * Optimize control of blood pressure. * Continue aspirin 81 mg and Lipitor 40 mg. * Neuro checks every 4 hours. * Telemetry monitoring rule out any arrhythmia * Recommend 30 day event monitoring rule out arrhythmia. Cardiology on board. * DVT prophylaxis: Lovenox, 40 mg subcutaneously daily. * Neurology will continue to follow. Thank you for the consult.
[2024-06-04] MEDS: METOPROLOL SUCCINATE (ER) 50 MG TAB.ER.24H PO SCH (08:13)
[2024-06-04 08:26] VITALS: RESP 16
[2024-06-04 09:12] LABS: African American GFR (CKD) >90 (>60 ml/min/1.73 sqM); Anion Gap 9 mmol/L; Blood Urea Nitrogen 20 mg/dL (9-20); Calcium 9.1 mg/dL (8.4-10.2); Carbon Dioxide 24 mmol/L (22-30); Chloride 104 mmol/L (98-107); Glucose 225 mg/dL (74-99); Non-African American GFR(CKD) >90 (>60 ml/min/1.73 sqM); Sodium 137 mmol/L (137-145)
--- NOTE | 2024-06-04 11:35 | P.EPCON ---
Electrophysiology Consult - EP Consult Electrophysiology Consult: Patient admitted with frequent PVCs in a bigeminal pattern PVC morphology as follows: Right bundle branch block morphology, V1 = rsR', rS pattern in the inferior leads, upright in all precordial leads, slight delta wave configuration in V3 and V4 and in lead I, PVC QRS fractionation in lead II 2D echo shows mild LV dysfunction with inferior/septal hypokinesis, mild Plan According to the patient he has nonobstructive CAD. 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 At [facility] Will schedule cardiac MRI to evaluate for nonischemic cardiomyopathy and evaluation of this inferior and septal orosco Will recommend a PVC ablation if his PVC burden is high such as his during this hospitalization This was discussed with patient and he is agreeable to plan and would like to have his ablation done at [facility]
[2024-06-04 11:48] LABS: Glucose,Whole Blood 93 mg/dL (70-110)
[2024-06-04] MEDS: INSULIN ASPART (NovoLOG) 100 UNIT/ML VIAL SQ SCH (11:49)
--- NOTE | 2024-06-04 11:49 | P.PN ---
Subjective Progress Note Date: 06/04/24 This is Larry Calvin NP, I'm dictating on behalf of Dr. Phelan's H&P and A&P. Patient was interviewed and examined. Patient is a pleasant 68-year-old male who presented to the hospital for a dizzy spell, and was found to have bigeminy on telemetry with a 30 to 50% PVC burden. Patient reports that he is feeling okay today. He reports overall that he is better than yesterday. He states that the dizzy symptoms have improved, and he is not having near as much trouble getting up and walking to the bathroom as he was previously. Echocardiogram was reviewed and demonstrates an ejection fraction of 45% with mild septal/inferior wall hypokinesis. He is denying chest pain, shortness of breath, and heart palpitations. GENERAL: Well-appearing, well-nourished and in no acute distress. NECK: Supple without JVD or thyromegaly. LUNGS: Breath sounds clear to auscultation bilaterally. Respiration equal and unlabored. No wheezes, rales or rhonchi. HEART: Regular rate and irregular rhythm without murmurs, rubs or gallops. S1 and S2 heard. EXTREMITIES: Normal range of motion, no edema. No clubbing or cyanosis. Peripheral pulses intact and strong. VITALS: Temp 97.7, pulse 82, respirations 16, blood pressure 130/78, O2 saturation 96% on room air TELEMETRY: Sinus mechanism, frequent PVCs, frequent bigeminy LABS: Sodium 137, potassium 4, BUN 20, creatinine 0.77, calcium 9.1, triglycerides 1 13, cholesterol 136, LDL 65.6, HDL 47.8, vitamin B12 399, TSH 1.21 IMPRESSION: 1. Dizziness and presyncope 2. Bigeminy and frequent PVCs 3. History of coronary artery disease 4. Dyslipidemia 5. Hypertension PLAN: Echocardiogram reviewed, ejection fraction is 45%, patient demonstrates mild sep kanika/inferior wall hypokinesis. Continue current medications as prescribed. Recommend continuing metoprolol succinate 50 mg daily. Watch the patient's telemetry. Have the patient walk the halls. If patient continues to demonstrate stability, he may be discharged this evening. Patient will have referral to electrophysiology as they recommend a cardiac MRI, as well as ablation electively. Objective - Vital Signs Vital signs: Vital Signs Temp 97.7 F 06/04/24 08:05 Pulse 70 06/04/24 11:11 Resp 16 06/04/24 11:11 BP 134/77 06/04/24 11:11 Pulse Ox 98 06/04/24 11:11 FiO2 Intake & Output 06/03/24 06/04/24 06/04/24 18:59 06:59 18:59 Intake Total 540 960 Balance 540 960 Weight 83.915 kg Intake: Oral 540 960 Other: Voiding Method Toilet Toilet Toilet # Voids 3 1 - Labs CBC & Chem 7: 06/03/24 06:51 06/04/24 08:26 Labs: Abnormal Lab Results - Last 24 Hours (Table) 06/03/24 06/04/24 Range/Units 06:51 08:26 Glucose 225 H (74-99) mg/dL Hemoglobin A1c 7.5 H (<=6.0) %
--- NOTE | 2024-06-04 13:34 | P.DS ---
Providers Date of admission: 06/02/24 20:15 Expected date of discharge: 06/04/24 Attending physician: Holly Granger MD Consults: 06/02/24 20:16 Consult Physician Routine Consulting Provider: Alf Multani Consult Reason/Comments: White matter changes Do you want consulting provider notified?: Yes Consult Physician Routine Consulting Provider: [facility] Consult Reason/Comments: Bigeminy Do you want consulting provider notified?: Yes Primary care physician: Nathan Marie Hospital Course: Discharge Diagnosis: Near syncope Bigeminy pattern Frequent PVCs, symptomatic Prerenal azotemia Mild hyperkalemia Leukocytosis Metabolic alkalosis Hypertension Dyslipidemia GERD Dermatitis Hospital Course: 68-year-old male with history of CAD, hypertension, GERD presents with new onset dizziness. nitial lab work done in the ER showed WBC 11.9, hemoglobin 16.2, platelet 235, APTT 21.7, sodium 136, potassium 5.4, chloride 103, bicarb 31, anion gap 2, BUN 26, creatinine 1.02, glucose 108, troponin negative. EKG done in the ER independently interpreted showed heart rate of 71, no ST segment elevation or depression seen, no T-wave inversions seen. Frequent PVCs in bigeminy patten. Chest x-ray done independently interpreted in the ER showed no acute process similar to previous chest x-ray. CT head done asymmetrical right frontal lobe white matter changes, no acute process. Patient was evaluated by cardiology and neurology. Echocardiogram showed LVEF 45% with mild septal and inferior wall hypokinesis. Increased metoprolol to succinate. Neurology not recommending further workup with MRI, carotid Dopplers did not show any significant stenosis Patient is asymptomatic at the time of discharge. Follow-up closely with electrophysiology, likely cardiac MRI and ablation in the future. Patient seen and examined at bedside. Vital signs reviewed and stable. General: Nontoxic, no distress, appears at stated age Derm: Warm, dry Head: Atraumatic, normocephalic, symmetric Eyes: EOMI, no lid lag, anicteric sclera Mouth: No lip lesion, mucus membranes moist Cardiovascular: S1S2 reg, no murmur Lungs: CTA bilateral, no rhonchi, no rales, no accessory muscle use Abdominal: Soft, nontender to palpation, no guarding, no appreciable organomegaly Ext: No gross muscle atrophy, no edema, no contractures Neuro: CN II-XI grossly intact, no focal neuro deficits Psych: Alert, oriented, appropriate affect A total of 36 minutes of time were spent preparing this complex discharge summary. Patient was discharged on 06/04/2024 at 1330. Plan - Discharge Summary Discharge Rx Participant: No New Discharge Prescriptions: New Cyanocobalamin [Vitamin B-12] 1,000 mcg PO DAILY #90 tab Metoprolol Succinate (ER) [Toprol XL] 50 mg PO DAILY #90 tab Continue EPINEPHrine (Auto Inject) [Epipen] 0.3 mg IM ONCE PRN PRN Reason: Anaphylaxis Rosuvastatin [Crestor] 20 mg PO HS Calcium Carbonate [Calcium] 600 mg PO BID Benazepril HCl [Lotensin] 20 mg PO HS Pantoprazole [Protonix] 40 mg PO DAILY predniSONE [Deltasone] 20 mg PO PC-SUPPER Aspirin EC [Ecotrin Low Dose] 81 mg PO PC-SUPPER Cholecalciferol [Vitamin D3 (25 Mcg = 1000 Iu)] 50 mcg PO DAILY Betamethasone Dipropionate [Betamethasone Dipropionate 0.05%] 1 applic TOPICAL BID Famotidine 20 mg PO HS Ranolazine [Ranexa] 500 mg PO BID Dupilumab [Dupixent Pen] 300 mg SQ Q14D Discontinued Metoprolol Succinate (ER) [Toprol Xl] 25 mg PO DAILY Discharge Medication List Cholecalciferol [Vitamin D3 (25 Mcg = 1000 Iu)] 50 mcg PO DAILY 07/23/22 [History] Aspirin EC [Ecotrin Low Dose] 81 mg PO PC-SUPPER 06/02/24 [History] Benazepril HCl [Lotensin] 20 mg PO HS 06/02/24 [History] Betamethasone Dipropionate [Betamethasone Dipropionate 0.05%] 1 applic TOPICAL BID 06/02/24 [History] Calcium Carbonate [Calcium] 600 mg PO BID 06/02/24 [History] Dupilumab [Dupixent Pen] 300 mg SQ Q14D 06/02/24 [History] EPINEPHrine (Auto Inject) [Epipen] 0.3 mg IM ONCE PRN 06/02/24 [History] Famotidine 20 mg PO HS 06/02/24 [History] Pantoprazole [Protonix] 40 mg PO DAILY 06/02/24 [History] Ranolazine [Ranexa] 500 mg PO BID 06/02/24 [History] Rosuvastatin [Crestor] 20 mg PO HS 06/02/24 [History] predniSONE [Deltasone] 20 mg PO PC-SUPPER 06/02/24 [History] Cyanocobalamin [Vitamin B-12] 1,000 mcg PO DAILY #90 tab 06/04/24 [Rx] Metoprolol Succinate (ER) [Toprol XL] 50 mg PO DAILY #90 tab 06/04/24 [Rx] Follow up Appointment(s)/Referral(s): Marques Phelan MD [STAFF PHYSICIAN] - 2 Weeks Nathan Marie MD [Primary Care Provider] - 1-2 days Patient Instructions/Handouts: Near Syncope (DC) Activity/Diet/Wound Care/Special Instructions: Please see cardiology and PCP. Discharge Disposition: HOME SELF-CARE
[2024-06-04] MEDS: CYANOCOBALAMIN 1,000 MCG/ML 1 ML VIAL IM ONE (14:10)
[2024-06-04 15:49] VITALS: BP 119/69; PULSE 67; TEMP 97.9
[2024-06-04 16:32] LABS: Glucose,Whole Blood 97 mg/dL (70-110)
[2024-06-05] MEDS ORDERED: CYANOCOBALAMIN 500 MCG TAB PO SCH (09:00)
--- NOTE | 2024-06-05 15:16 | P.PN ---
Subjective Progress Note Date: 06/04/24 This is a telemedicine neurology follow-up performed today on 06/04/2024, and in coordination with Anum Zazueta. Patient was seen for a follow-up. Patient states dizziness is not as bad. He walked around in the hallway and is doing okay. Denies any headache. No new concerns. Objective - Vital Signs Vital signs: Vital Signs Temp 97.7 F 06/04/24 08:05 Pulse 70 06/04/24 11:11 Resp 16 06/04/24 11:11 BP 134/77 06/04/24 11:11 Pulse Ox 98 06/04/24 11:11 FiO2 Intake & Output 06/03/24 06/04/24 06/04/24 18:59 06:59 18:59 Intake Total 540 960 Balance 540 960 Weight 83.915 kg Intake: Oral 540 960 Other: Voiding Method Toilet Toilet Toilet # Voids 3 1 - Exam Unchanged. - Labs CBC & Chem 7: 06/03/24 06:51 06/04/24 08:26 Labs: Abnormal Lab Results - Last 24 Hours (Table) 06/03/24 06/04/24 Range/Units 06:51 08:26 Glucose 225 H (74-99) mg/dL Hemoglobin A1c 7.5 H (<=6.0) % Assessment and Plan Assessment: * Transient episode of dizziness, lightheadedness, imbalance and veering to the left side. Symptoms lasted for about couple hours. There were no associated focal symptoms like slurred speech, facial droop, or any other focal symptoms. Uncertain if above episode related to cardiac dysrhythmia, or from peripheral vestibular dysfunction. Patient had abnormal 2-D echo, and also revealed evidence of PVCs originating from the left inferior wall (per echo report). Doubt TIA, although in the differential. * Hypertension * Hyperlipidemia * Diabetes, new onset, with A1c 7.5. * Eczema * X tobacco use Plan: * Patient's symptoms have resolved. Exact cause of dizziness/vertigo, unclear. * CT head revealed some brain atrophy, somewhat out of proportion for the patient's chronological age. There is some hypodensity noted in the right c entrum semiovale, which appears chronic in nature. No acute process. * No indication for MRI, as his symptoms have resolved and the current examination is nonfocal. Patient will undergo workup for TIA. * 2-D echo revealed LV EF 45%. Hypokinetic inferior wall. Abnormal septal motion. Mild right atrial dilation. Mildly increased left atrial volume. Mild to moderate MR. PVCs noted during procedure. * Carotid Doppler revealed no hemodynamically significant stenosis in the ICA on either side. Antegrade flow in both vertebral arteries. * Fasting a.m. lipid panel with cholesterol 136, LDL 65, HDL 47 triglycerides 113. * Hemoglobin A1c 7.5, consistent with new onset diabetes. IM to address diabetes. * B12 399, RBC folate 473, TSH normal 1.21. Patient has borderline B12, we will give B12 1000 mcg IM x 1 dose, followed by 1000 mcg orally daily. * Orthostatics were checked, and are negative: Supine blood pressure 126/78, sitting 144/75 and standing 135/73. * Optimize control of blood pressure. * Continue aspirin 81 mg and Lipitor 40 mg. * Telemetry monitoring rule out any arrhythmia * Recommend 30 day event monitoring rule out arrhythmia. Cardiology on board. * DVT prophylaxis: Lovenox, 40 mg subcutaneously daily. * Neurologically clear for discharge.
== END 2024-06-04 17:25 | disposition home or self-care (01) ==
LOC: EC 17:57 → 3SCARD 20:15 → INTOOBSV 20:15 → 3SCARD 22:35 → UNDODISIN 06-04 17:25
PROVIDERS: ADMIT Internal Medicine; ATTEND Internal Medicine
DX: R55 Syncope and collapse (principal); I49.3 Ventricular premature depolarization; E87.3 Alkalosis; E87.5 Hyperkalemia; E86.0 Dehydration; E11.9 Type 2 diabetes mellitus without complications; G31.9 Degenerative disease of nervous system, unspecified; I10 Essential (primary) hypertension; D72.829 Elevated white blood cell count, unspecified; E78.5 Hyperlipidemia, unspecified; R79.89 Other specified abnormal findings of blood chemistry; I25.10 Atherosclerotic heart disease of native coronary artery without angina pectoris; I45.10 Unspecified right bundle-branch block; L30.9 Dermatitis, unspecified; K21.9 Gastro-esophageal reflux disease without esophagitis; Z79.82 Long term (current) use of aspirin; Z79.52 Long term (current) use of systemic steroids; Z79.899 Other long term (current) drug therapy; Z87.891 Personal history of nicotine dependence
CPT/HCPCS: 96372 ×2; 96360; 99285; 36415; 93005; 82747; 80061; 80053; 80048 ×2; 84443; 84133; 82607; 82550; 83735 ×2; 84484; 85025 ×2; 85610; 85730; 81003; 83036; 71046; 93880; 70450; G0378 ×3; C8929; J3420; J1650 ×2; Q9957; J7512 ×2; Q9967; 93306